=== PATIENT | female | born 2000 | race Caucasian/White ===

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

== ENCOUNTER 2019-01-13 23:54 | Emergency (ER) | payer MEDICAID ==
[~2019-01-13] VITALS: Ht 170.2 cm; Wt 80.0 kg
[2019-01-13 23:56] VITALS: BP 108/60
[2019-01-14] MEDS ORDERED: TRAZ50TA66 PO (00:02)
[2019-01-14] MEDS ORDERED: HYDR25TA11 PO (00:02)
--- NOTE | 2019-01-14 00:36 | NUR ---
ANASTASIA MUSA AT BS FOR US. PT EDUCATED ON ER PROCESS AND POC AND VERBALIZES UNDERSTANDING.
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
== END 2019-01-14 00:55 ==
LOC: ED 01-14 00:37
DX: O26.891 Other specified pregnancy related conditions, first trimester (principal); R10.9 Unspecified abdominal pain; G43.909 Migraine, unspecified, not intractable, without status migrainosus; F31.9 Bipolar disorder, unspecified; F90.9 Attention-deficit hyperactivity disorder, unspecified type; F60.9 Personality disorder, unspecified; Z3A.08 8 weeks gestation of pregnancy; Z72.9 Problem related to lifestyle, unspecified; Z75.9 Unspecified problem related to medical facilities and other health care; Z90.89 Acquired absence of other organs
CPT/HCPCS: 99284

== ENCOUNTER 2019-01-23 18:54 | Emergency (ER) | payer MEDICAID ==
[~2019-01-23] VITALS: Ht 160 cm; Wt 71.4 kg
[~2019-01-23 18:54] MED LIST changes: +HYDR25TA11 PO; +TRAZ50TA66 PO
--- NOTE | 2019-01-23 19:36 | NUR ---
PT TO ROOM FROM LOBBY
--- NOTE | 2019-01-23 19:45 | NUR ---
PT IN US AT THIS TIME
[2019-01-23 19:48] LABS: BASOPHILS # (AUTO) 0.04 x10^3/uL (0-0.3); BASOPHILS % (AUTO) 0 % (0-1); EOSINOPHILS # (AUTO) 0.04 x10^3/uL (0-0.8); EOSINOPHILS % (AUTO) 0 % (1-7); LYMPHOCYTES # (AUTO) 1.89 x10^3/uL (1-6.1); LYMPHOCYTES % (AUTO) 22 % (22-44); MD NO; MEAN CORPUSCULAR HEMOGLOBIN 30.2 pg (27.0-34.8); MEAN CORPUSCULAR HGB CONC 33.9 g/dL (32.4-35.8); MEAN CORPUSCULAR VOLUME 88.9 fL (80-100); MEAN PLATELET VOLUME 8.7 fL (7.4-10.4); MONOCYTES # (AUTO) 0.49 x10^3/uL (0-1.4); MONOCYTES % (AUTO) 6 % (2-9); NEUTROPHILS # (AUTO) 6.12 x10^3/uL (1.8-8.0); NEUTROPHILS % (AUTO) 71 % (42-75); PLATELET COUNT 267 x10^3/uL (130-400); RED BLOOD COUNT 4.08 x10^6/uL (3.82-5.3); RED CELL DISTRIBUTION WIDTH 13.6 % (9.6-15.2)
[2019-01-23 19:57] VITALS: BP 109/45
--- NOTE | 2019-01-23 19:58 | NUR ---
PT PRESENTS TO ED WITH C/O UTERINE CRAMPING X 5 DAYS , DENIES VAGINAL BLEEDING. PT REPORTS SHE IS 9 WEEKS . PT ATTACHED TO BP AND SPO2 MONITORS. GREGORY MUNOZ AT BEDSIDE. CALL LIGHT IN REACH, S/O AT BEDSIDE.
[2019-01-23 20:11] LABS: CULTURE INDICATED? YES; MICROSCOPIC INDICATED
[2019-01-23] MEDS ORDERED: ACETAMINOPHEN 500 MG TABLET PO ONE (20:30)
== END 2019-01-23 21:18 | disposition home or self-care (01) ==
LOC: ED 20:15
DX: O26.891 Other specified pregnancy related conditions, first trimester (principal); R10.30 Lower abdominal pain, unspecified; R30.0 Dysuria; R11.0 Nausea; J45.909 Unspecified asthma, uncomplicated; F31.9 Bipolar disorder, unspecified; F90.9 Attention-deficit hyperactivity disorder, unspecified type; F60.9 Personality disorder, unspecified; Z3A.09 9 weeks gestation of pregnancy; Z87.891 Personal history of nicotine dependence; Z72.9 Problem related to lifestyle, unspecified; Z90.89 Acquired absence of other organs
CPT/HCPCS: 36415; 76801; 81001; 84702; 85025; 87086; 99284

== ENCOUNTER 2019-01-27 20:36 | Emergency (ER) | payer MEDICAID ==
[~2019-01-27] VITALS: Ht 170.2 cm; Wt 71.4 kg
[2019-01-27 21:07] VITALS: BP 101/47
[2019-01-27] MEDS ORDERED: ONDANSETRON ODT 4 MG PO ONE (21:30)
[2019-01-27 21:56] LABS: BASOPHILS # (AUTO) 0.03 x10^3/uL (0-0.3); BASOPHILS % (AUTO) 0 % (0-1); EOSINOPHILS # (AUTO) 0.04 x10^3/uL (0-0.8); EOSINOPHILS % (AUTO) 1 % (1-7); LYMPHOCYTES % (AUTO) 25 % (22-44); MD NO; MEAN CORPUSCULAR HEMOGLOBIN 29.9 pg (27.0-34.8); MEAN CORPUSCULAR HGB CONC 33.2 g/dL (32.4-35.8); MEAN CORPUSCULAR VOLUME 90.2 fL (80-100); MONOCYTES # (AUTO) 0.58 x10^3/uL (0-1.4); MONOCYTES % (AUTO) 7 % (2-9); NEUTROPHILS # (AUTO) 5.51 x10^3/uL (1.8-8.0); NEUTROPHILS % (AUTO) 68 % (42-75); PLATELET COUNT 270 x10^3/uL (130-400); RED BLOOD COUNT 4.13 x10^6/uL (3.82-5.3); RED CELL DISTRIBUTION WIDTH 13.8 % (9.6-15.2)
[2019-01-27 22:02] LABS: ALANINE AMINOTRANSFERASE 24 U/L (12-78); ALBUMIN 3.9 g/dL (3.4-5.0); ANION GAP 6 mmol/L (5-15); CALCIUM 8.7 mg/dL (8.5-10.1); CHLORIDE 109 mmol/L (98-107); CREATININE 0.62 mg/dL (0.55-1.02)
[2019-01-27 22:18] LABS: ALKALINE PHOSPHATASE 50 U/L (45-117); BILIRUBIN,TOTAL 0.2 mg/dL (0.2-1.0)
[2019-01-27 22:50] LABS: MICROSCOPIC NOT IND
[2019-01-27 22:52] LABS: CULTURE INDICATED? NO
--- NOTE | 2019-01-27 23:07 | NUR ---
Patient/Caregiver given discharge instructions and they have confirmed that they understand the instructions. Patient ambulatory with steady gait.
== END 2019-01-27 23:11 | disposition home or self-care (01) ==
LOC: ED 23:08
DX: O26.891 Other specified pregnancy related conditions, first trimester (principal); R10.2 Pelvic and perineal pain; Z3A.10 10 weeks gestation of pregnancy; Z72.9 Problem related to lifestyle, unspecified; Z90.49 Acquired absence of other specified parts of digestive tract; J45.909 Unspecified asthma, uncomplicated; F90.9 Attention-deficit hyperactivity disorder, unspecified type; F31.9 Bipolar disorder, unspecified
CPT/HCPCS: 36415; 76801; 80053; 81003; 84702; 85025; 86901; 99284

== ENCOUNTER 2019-01-31 10:52 | Emergency (ER) | payer MEDICAID ==
[~2019-01-31] VITALS: Ht 170.2 cm; Wt 70.0 kg
[2019-01-31 10:55] VITALS: BP 117/69
--- NOTE | 2019-01-31 11:28 | NUR ---
ua sent to lab. pt in bed resting comfortably. mother is at bedside. awaiting meds from pharmacy.
[2019-01-31] MEDS ORDERED: PYRIDOXINE 25MG TABLET PO ONE (11:30)
[2019-01-31 12:44] LABS: MICROSCOPIC INDICATED
[2019-01-31] MEDS ORDERED: DOXYLAMINE 25MG TABLET PO ONE (21:00)
== END 2019-01-31 13:20 | disposition home or self-care (01) ==
LOC: ED 11:39
DX: O21.0 Mild hyperemesis gravidarum (principal); Z90.89 Acquired absence of other organs; Z3A.10 10 weeks gestation of pregnancy
CPT/HCPCS: 81001; 99283

== ENCOUNTER 2019-02-13 18:54 | Emergency (ER) | payer MEDICAID ==
[~2019-02-13] VITALS: Ht 170.2 cm; Wt 70.5 kg
--- NOTE | 2019-02-13 19:04 | NUR ---
pt ambulates from triage to room with steady gait.
[2019-02-13] MEDS ORDERED: METOCLOPRAMIDE 5 MG/ML, 2ML ONE (19:22)
[2019-02-13] MEDS ORDERED: ACETAMINOPHEN 500 MG TABLET ONE (19:23)
[2019-02-13] MEDS ORDERED: ACETAMINOPHEN 500 MG TABLET PO ONE (19:30)
[2019-02-13] MEDS ORDERED: METOCLOPRAMIDE 5 MG/ML, 2ML IM ONE (19:30)
--- NOTE | 2019-02-13 19:39 | NUR ---
pt medicated per dec. urine sent to lab.
--- NOTE | 2019-02-13 19:57 | NUR ---
pt sleeping in [facility] at this time;
[2019-02-13 20:19] LABS: AMPHETAMINE SCREEN, URINE Negative (Negative); BARBITURATE SCREEN, URINE Negative (Negative); BENZODIAZEPINE SCREEN, URINE Negative (Negative); CANNABINOID SCREEN, URINE Negative (Negative); COCAINE SCREEN, URINE Negative (Negative); METHADONE SCREEN, URINE Negative (Negative); OPIATE SCREEN, URINE Negative (Negative)
--- NOTE | 2019-02-13 20:30 | NUR ---
pt d/c with d/c summary. all questions answered. pt ambulates to registration desk with steady gait for d/c home with friends. pt denies any other needs pertaining to this visit.
[2019-02-13 20:31] VITALS: BP 129/88
== END 2019-02-13 20:34 | disposition home or self-care (01) ==
LOC: ED 19:35
DX: O9A.211 Injury, poisoning and certain other consequences of external causes complicating pregnancy, first trimester (principal); O99.511 Diseases of the respiratory system complicating pregnancy, first trimester; R51 Headache; R11.0 Nausea; Z3A.12 12 weeks gestation of pregnancy; Z91.040 Latex allergy status
CPT/HCPCS: 80307; 96372; 99283; J2765

== ENCOUNTER 2019-02-26 15:08 | Emergency (ER) | payer MEDICAID ==
[~2019-02-26] VITALS: Ht 170.2 cm; Wt 69.4 kg
[2019-02-26 15:42] VITALS: BP 109/70
== END 2019-02-26 16:29 | disposition home or self-care (01) ==
LOC: ED 16:01
DX: J06.9 Acute upper respiratory infection, unspecified (principal); F31.9 Bipolar disorder, unspecified; J45.909 Unspecified asthma, uncomplicated; Z90.89 Acquired absence of other organs
CPT/HCPCS: 71046; 99283

== ENCOUNTER 2019-03-01 21:43 | Emergency (ER) | payer MEDICAID ==
[~2019-03-01] VITALS: Ht 170.2 cm; Wt 79.0 kg
--- NOTE | 2019-03-01 21:57 | NUR ---
+ NAUSEA AND VOMITTED X1 AT HOME BEFORE CAME FOR EMS TO ER STABLE VSS MOTHER AT BEDSIDE
[2019-03-01] MEDS ORDERED: ONDANSETRON ODT 4 MG PO ONE (22:00)
[2019-03-01 22:15] LABS: BASOPHILS # (AUTO) 0.09 x10^3/uL (0-0.3); BASOPHILS % (AUTO) 1 % (0-1); EOSINOPHILS # (AUTO) 0.06 x10^3/uL (0-0.8); EOSINOPHILS % (AUTO) 1 % (1-7); LYMPHOCYTES # (AUTO) 1.58 x10^3/uL (1-6.1); LYMPHOCYTES % (AUTO) 20 % (22-44); MD NO; MEAN CORPUSCULAR HEMOGLOBIN 31.3 pg (27.0-34.8); MEAN CORPUSCULAR HGB CONC 34.4 g/dL (32.4-35.8); MEAN CORPUSCULAR VOLUME 91.1 fL (80-100); MONOCYTES % (AUTO) 6 % (2-9); NEUTROPHILS # (AUTO) 5.83 x10^3/uL (1.8-8.0); NEUTROPHILS % (AUTO) 72 % (42-75); PLATELET COUNT 228 x10^3/uL (130-400); RED BLOOD COUNT 3.69 x10^6/uL (3.82-5.3)
[2019-03-01] MEDS ORDERED: ONDANSETRON ODT 4 MG ONE (22:19)
--- NOTE | 2019-03-01 22:22 | NUR ---
PT MEDICATED WITH ZOFRAN 4 MG PO PER EMAR.
[2019-03-01 22:24] LABS: ALBUMIN 2.9 g/dL (3.4-5.0); ANION GAP 8 mmol/L (5-15); CALCIUM 8.4 mg/dL (8.5-10.1); CHLORIDE 111 mmol/L (98-107); CREATININE 0.54 mg/dL (0.55-1.02)
--- NOTE | 2019-03-01 22:53 | NUR ---
PT SLEEPING. VSS. FAMILY AT BEDSIDE.
[2019-03-01 22:54] VITALS: BP 120/56
== END 2019-03-01 23:13 | disposition home or self-care (01) ==
LOC: ED 22:27
DX: R11.2 Nausea with vomiting, unspecified (principal); R10.9 Unspecified abdominal pain; F31.9 Bipolar disorder, unspecified; F41.1 Generalized anxiety disorder; F90.9 Attention-deficit hyperactivity disorder, unspecified type; Z72.89 Other problems related to lifestyle
CPT/HCPCS: 36415; 80048; 82040; 85025; 99283; Q0162

== ENCOUNTER 2019-03-30 21:08 | Emergency (ER) | payer MEDICAID ==
[~2019-03-30] VITALS: Ht 154.9 cm; Wt 69.0 kg
[~2019-03-30 21:08] MED LIST changes: +LAMO25TA52 PO; +LORA10TA62 PO; +SERT25TA3 PO
--- NOTE | 2019-03-30 21:17 | NUR ---
pt in gown in [facility]. awaiting erp.
--- NOTE | 2019-03-30 22:15 | NUR ---
PT AMBULATES TO RESTROOM WITH STEADY GAIT.
--- NOTE | 2019-03-30 22:16 | NUR ---
INSURANCE VERIFIER: LD IN ROOM
--- NOTE | 2019-03-30 22:23 | NUR ---
PT URINE SENT TO LAB.
--- NOTE | 2019-03-30 22:25 | NUR ---
PER Vitor LUI. T 150'S.
[2019-03-30] MEDS ORDERED: ACETAMINOPHEN 500 MG TABLET ONE (22:28)
[2019-03-30] MEDS ORDERED: ACETAMINOPHEN 500 MG TABLET PO ONE (22:30)
--- NOTE | 2019-03-30 22:31 | NUR ---
PT MEDICATED PER DEC. PT TO US VIA GLORIA.
[2019-03-30 22:36] LABS: BASOPHILS # (AUTO) 0.06 x10^3/uL (0-0.3); BASOPHILS % (AUTO) 1 % (0-1); EOSINOPHILS # (AUTO) 0.06 x10^3/uL (0-0.8); EOSINOPHILS % (AUTO) 1 % (1-7); LYMPHOCYTES % (AUTO) 20 % (22-44); MD NO; MEAN CORPUSCULAR HEMOGLOBIN 31.1 pg (27.0-34.8); MEAN CORPUSCULAR HGB CONC 33.6 g/dL (32.4-35.8); MEAN CORPUSCULAR VOLUME 92.8 fL (80-100); MEAN PLATELET VOLUME 8.1 fL (7.4-10.4); MONOCYTES # (AUTO) 0.65 x10^3/uL (0-1.4); MONOCYTES % (AUTO) 7 % (2-9); NEUTROPHILS # (AUTO) 6.75 x10^3/uL (1.8-8.0); NEUTROPHILS % (AUTO) 72 % (42-75); PLATELET COUNT 264 x10^3/uL (130-400); RED BLOOD COUNT 3.53 x10^6/uL (3.82-5.3); RED CELL DISTRIBUTION WIDTH 14.1 % (9.6-15.2)
[2019-03-30 22:37] LABS: CULTURE INDICATED? YES; MICROSCOPIC INDICATED
[2019-03-30 22:48] LABS: ALANINE AMINOTRANSFERASE 16 U/L (12-78); ALBUMIN 2.8 g/dL (3.4-5.0); ANION GAP 7 mmol/L (5-15); CALCIUM 8.5 mg/dL (8.5-10.1); CHLORIDE 110 mmol/L (98-107)
[2019-03-30 22:50] LABS: ALKALINE PHOSPHATASE 42 U/L (45-117); BILIRUBIN,TOTAL < 0.1 mg/dL (0.2-1.0)
[2019-03-31] MEDS ORDERED: CEFDINIR 300 MG CAPSULE PO ONE
--- NOTE | 2019-03-31 00:45 | NUR ---
PT D/C WITH D/C SUMMARY AND SCRIPTS. ALL QUESTIONS ANSWERED. PT AMBULATES TO REGISTRATION DESK WITH STEADY GAIT FOR D/C HOME. PT TO CALL MTM FOR SAFE D/C HOME. PT DENIES ANY OTHER NEEDS PERTAINING TO THIS VISIT. VSS.
[2019-03-31 00:46] VITALS: BP 110/80
== END 2019-03-31 00:48 | disposition home or self-care (01) ==
LOC: ED 22:19
DX: O20.0 Threatened abortion (principal); O23.12 Infections of bladder in pregnancy, second trimester; Z3A.20 20 weeks gestation of pregnancy; F31.9 Bipolar disorder, unspecified; J45.909 Unspecified asthma, uncomplicated; Z90.89 Acquired absence of other organs; Z87.891 Personal history of nicotine dependence
CPT/HCPCS: 36415; 76815; 80053; 81001; 85025; 87086; 99284

== ENCOUNTER 2019-04-17 10:07 | Observation (INO) | payer MEDICAID ==
[~2019-04-17] VITALS: Ht 170.2 cm; Wt 71.0 kg
[2019-04-17 10:25] VITALS: BP 115/66
[2019-04-17 11:17] LABS: MICROSCOPIC AUTO
[2019-04-17 11:22] LABS: AMPHETAMINE SCREEN, URINE Negative (Negative); BARBITURATE SCREEN, URINE Negative (Negative); BENZODIAZEPINE SCREEN, URINE Negative (Negative); CANNABINOID SCREEN, URINE Negative (Negative); COCAINE SCREEN, URINE Negative (Negative); METHADONE SCREEN, URINE Negative (Negative); OPIATE SCREEN, URINE Negative (Negative)
[2019-04-17 11:28] LABS: BASOPHILS # (AUTO) 0.02 x10^3/uL (0-0.3); BASOPHILS % (AUTO) 0 % (0-1); EOSINOPHILS # (AUTO) 0.03 x10^3/uL (0-0.8); EOSINOPHILS % (AUTO) 0 % (1-7); LYMPHOCYTES # (AUTO) 1.06 x10^3/uL (1-6.1); LYMPHOCYTES % (AUTO) 13 % (22-44); MD NO; MEAN CORPUSCULAR HEMOGLOBIN 30.8 pg (27.0-34.8); MEAN CORPUSCULAR HGB CONC 32.9 g/dL (32.4-35.8); MEAN CORPUSCULAR VOLUME 93.7 fL (80-100); MEAN PLATELET VOLUME 9.1 fL (7.4-10.4); MONOCYTES # (AUTO) 0.43 x10^3/uL (0-1.4); MONOCYTES % (AUTO) 5 % (2-9); NEUTROPHILS # (AUTO) 6.59 x10^3/uL (1.8-8.0); NEUTROPHILS % (AUTO) 81 % (42-75); PLATELET COUNT 242 x10^3/uL (130-400); RED BLOOD COUNT 3.56 x10^6/uL (3.82-5.3); RED CELL DISTRIBUTION WIDTH 13.5 % (9.6-15.2)
[2019-04-17] MEDS ORDERED: PREN1TAB60 PO (12:30)
[2019-04-17] MEDS ORDERED: PYRI25TA2 PO (12:35)
[2019-04-17] MEDS ORDERED: OXYcodone/APAP 5/325MG TABLET ONE (13:03)
[2019-04-17] MEDS ORDERED: OXYcodone/APAP 5/325MG TABLET PO ONE (13:30)
[2019-04-17] MEDS ORDERED: NITR100C56 PO (13:51)
== END 2019-04-17 14:20 | disposition home or self-care (01) ==
LOC: LDOP 10:07 → LDIP 12:00
PROVIDERS: ADMIT Obstetrics & Gynecology; ATTEND Obstetrics & Gynecology
DX: O26.892 Other specified pregnancy related conditions, second trimester (principal); R10.9 Unspecified abdominal pain; O99.342 Other mental disorders complicating pregnancy, second trimester; F32.9 Major depressive disorder, single episode, unspecified; Z3A.21 21 weeks gestation of pregnancy; Z90.89 Acquired absence of other organs
CPT/HCPCS: 36415; 80307; 81001; 85025; 85460; 86592; 86762; 86803; 86850; 86900; 87086; 87340; 87806; G0378; 99211; G0463; G0475

== ENCOUNTER 2019-04-24 14:30 | Outpatient (CLI) | payer MEDICAID ==
[~2019-04-24 14:30] MED LIST changes: +NITR100C56 PO; +PREN1TAB60 PO; +PYRI25TA2 PO
[2019-04-24 14:56] LABS: MICROSCOPIC INDICATED
[2019-04-24 15:08] LABS: AMPHETAMINE SCREEN, URINE Negative (Negative); BARBITURATE SCREEN, URINE Negative (Negative); BENZODIAZEPINE SCREEN, URINE Negative (Negative); CANNABINOID SCREEN, URINE Negative (Negative); COCAINE SCREEN, URINE Negative (Negative); METHADONE SCREEN, URINE Negative (Negative); OPIATE SCREEN, URINE Negative (Negative)
[2019-04-24] MEDS ORDERED: NITR100C56 PO (15:38)
== END 2019-04-24 15:45 | disposition home or self-care (01) ==
LOC: LDOP 14:30
PROVIDERS: ATTEND Obstetrics & Gynecology
DX: O36.8120 Decreased fetal movements, second trimester, not applicable or unspecified (principal); Z3A.21 21 weeks gestation of pregnancy
CPT/HCPCS: 80307; 81001; 87086; 87147; 99211; G0463

== ENCOUNTER 2019-04-27 04:20 | Outpatient (CLI) | payer MEDICAID ==
[~2019-04-27] VITALS: Ht 170.2 cm; Wt 70.9 kg
[2019-04-27 04:25] VITALS: BP 102/61
[2019-04-27 04:54] LABS: MICROSCOPIC NOT IND
[2019-04-27 05:06] LABS: AMPHETAMINE SCREEN, URINE Negative (Negative); BARBITURATE SCREEN, URINE Negative (Negative); BENZODIAZEPINE SCREEN, URINE Negative (Negative); CANNABINOID SCREEN, URINE Negative (Negative); COCAINE SCREEN, URINE Negative (Negative); METHADONE SCREEN, URINE Negative (Negative); OPIATE SCREEN, URINE Negative (Negative)
== END 2019-04-27 05:10 | disposition home or self-care (01) ==
LOC: LDOP 04:20
PROVIDERS: ATTEND Obstetrics & Gynecology
DX: O26.892 Other specified pregnancy related conditions, second trimester (principal); Z3A.23 23 weeks gestation of pregnancy
CPT/HCPCS: 80307; 81003; 87086; 99211; G0463

== ENCOUNTER 2019-04-28 06:48 | Outpatient (CLI) | payer MEDICAID ==
[2019-04-28] MEDS ORDERED: ONDANSETRON 4 MG TABLET ONE (07:41)
[2019-04-28] MEDS ORDERED: ONDANSETRON ODT 4 MG PO PRN (08:00)
[2019-04-28 08:08] LABS: BASOPHILS # (AUTO) 0.02 x10^3/uL (0-0.3); BASOPHILS % (AUTO) 0 % (0-1); EOSINOPHILS # (AUTO) 0.04 x10^3/uL (0-0.8); EOSINOPHILS % (AUTO) 1 % (1-7); LYMPHOCYTES # (AUTO) 0.93 x10^3/uL (1-6.1); LYMPHOCYTES % (AUTO) 14 % (22-44); MD NO; MEAN CORPUSCULAR HGB CONC 33.5 g/dL (32.4-35.8); MEAN CORPUSCULAR VOLUME 95.4 fL (80-100); MEAN PLATELET VOLUME 8.5 fL (7.4-10.4); MONOCYTES # (AUTO) 0.43 x10^3/uL (0-1.4); MONOCYTES % (AUTO) 7 % (2-9); NEUTROPHILS # (AUTO) 5.09 x10^3/uL (1.8-8.0); NEUTROPHILS % (AUTO) 78 % (42-75); PLATELET COUNT 231 x10^3/uL (130-400); RED BLOOD COUNT 3.26 x10^6/uL (3.82-5.3); RED CELL DISTRIBUTION WIDTH 13.5 % (9.6-15.2)
[2019-04-28 10:25] LABS: CULTURE INDICATED? YES; MICROSCOPIC INDICATED
[2019-04-28 10:29] LABS: AMPHETAMINE SCREEN, URINE Negative (Negative); BARBITURATE SCREEN, URINE Negative (Negative); BENZODIAZEPINE SCREEN, URINE Negative (Negative); CANNABINOID SCREEN, URINE Negative (Negative); COCAINE SCREEN, URINE Negative (Negative); METHADONE SCREEN, URINE Negative (Negative); OPIATE SCREEN, URINE Negative (Negative)
== END 2019-04-28 11:10 | disposition home or self-care (01) ==
LOC: LDOP 06:48
PROVIDERS: ATTEND Obstetrics & Gynecology
DX: O26.892 Other specified pregnancy related conditions, second trimester (principal); R10.9 Unspecified abdominal pain; Z91.040 Latex allergy status; Z88.1 Allergy status to other antibiotic agents; Z3A.24 24 weeks gestation of pregnancy
CPT/HCPCS: 36415; 59025; 80307; 81001; 85025; 86592; 86762; 86850; 86900; 87086; 87340; 87806; 99211; Q0162; G0463; G0475

== ENCOUNTER 2019-05-06 09:12 | Outpatient (CLI) | payer MEDICAID ==
[~2019-05-06] VITALS: Ht 170.2 cm; Wt 74.1 kg
[2019-05-06 09:50] VITALS: BP 104/53
[2019-05-06 09:50] LABS: MICROSCOPIC INDICATED
[2019-05-06 09:54] LABS: AMPHETAMINE SCREEN, URINE Negative (Negative); BARBITURATE SCREEN, URINE Negative (Negative); BENZODIAZEPINE SCREEN, URINE Negative (Negative); CANNABINOID SCREEN, URINE Negative (Negative); COCAINE SCREEN, URINE Negative (Negative); METHADONE SCREEN, URINE Negative (Negative); OPIATE SCREEN, URINE Negative (Negative)
[2019-05-06] MEDS ORDERED: b6 PO/NG (10:36)
[2019-05-06] MEDS ORDERED: albut (10:37)
== END 2019-05-06 12:05 | disposition home or self-care (01) ==
LOC: LDOP 09:12
PROVIDERS: ATTEND Obstetrics & Gynecology
DX: O21.2 Late vomiting of pregnancy (principal); Z3A.24 24 weeks gestation of pregnancy; Z88.6 Allergy status to analgesic agent; Z91.040 Latex allergy status; Z88.8 Allergy status to other drugs, medicaments and biological substances
CPT/HCPCS: 59025; 80307; 81001; 87086; 99211; G0463

== ENCOUNTER 2019-05-11 20:30 | Emergency (ER) | payer SELFPAY ==
[~2019-05-11] VITALS: Ht 170.2 cm; Wt 73.7 kg
[~2019-05-11 20:30] MED LIST changes: +albut; +b6 PO/NG
[2019-05-11 20:35] VITALS: BP 104/67
--- NOTE | 2019-05-11 20:52 | NUR ---
PT CHANGED CHIEF COMPLAINT AFTER BEING REGISTERED TO ED AND SEEN IN TRIAGE, TRANSFERED TO L@D.
== END 2019-05-11 21:50 ==
LOC: ED 21:28
DX: R05 Cough (principal); Z53.21 Procedure and treatment not carried out due to patient leaving prior to being seen by health care provider

== ENCOUNTER 2019-05-11 20:53 | Outpatient (CLI) | payer MEDICAID ==
[~2019-05-11] VITALS: Ht 170.2 cm; Wt 74.0 kg
[2019-05-11 21:05] VITALS: BP 107/61
== END 2019-05-11 21:37 | disposition home or self-care (01) ==
LOC: LDOP 20:53
PROVIDERS: ATTEND Obstetrics & Gynecology
DX: O26.892 Other specified pregnancy related conditions, second trimester (principal); R10.9 Unspecified abdominal pain; R05 Cough; Z3A.25 25 weeks gestation of pregnancy
CPT/HCPCS: 81001; 87086

== ENCOUNTER 2019-05-25 17:18 | Outpatient (CLI) | payer SELFPAY ==
[~2019-05-25 17:18] MED LIST changes: +HYDR-826 PO; -HYDR25TA11 PO
[2019-05-25 18:29] LABS: AMPHETAMINE SCREEN, URINE Negative (Negative); BARBITURATE SCREEN, URINE Negative (Negative); BENZODIAZEPINE SCREEN, URINE Negative (Negative); CANNABINOID SCREEN, URINE Negative (Negative); COCAINE SCREEN, URINE Negative (Negative); METHADONE SCREEN, URINE Negative (Negative); OPIATE SCREEN, URINE Negative (Negative)
[2019-05-25 18:32] LABS: MICROSCOPIC INDICATED
== END 2019-05-25 20:15 | disposition home or self-care (01) ==
LOC: LDOP 17:18
PROVIDERS: ATTEND Obstetrics & Gynecology
DX: O26.893 Other specified pregnancy related conditions, third trimester (principal); R42 Dizziness and giddiness; R10.9 Unspecified abdominal pain; Z3A.28 28 weeks gestation of pregnancy
CPT/HCPCS: 59025; 76815; 80307; 81001; 87086; 99211; G0463

== ENCOUNTER 2019-08-31 18:10 | Emergency (ER) | payer SELFPAY ==
[~2019-08-31] VITALS: Ht 170.2 cm; Wt 72.5 kg
[2019-08-31 18:16] VITALS: BP 109/69
== END 2019-08-31 19:33 ==
LOC: ED 19:20
DX: S30.0XXA Contusion of lower back and pelvis, initial encounter (principal); F31.9 Bipolar disorder, unspecified; Z72.9 Problem related to lifestyle, unspecified; Z90.49 Acquired absence of other specified parts of digestive tract; Z87.891 Personal history of nicotine dependence; G43.909 Migraine, unspecified, not intractable, without status migrainosus; W19.XXXA Unspecified fall, initial encounter; Y93.89 Activity, other specified; Y92.89 Other specified places as the place of occurrence of the external cause; Y99.8 Other external cause status
CPT/HCPCS: 72110; 99283

== ENCOUNTER 2019-09-15 09:55 | Emergency (ER) | payer OTHER ==
[~2019-09-15] VITALS: Ht 170.2 cm; Wt 68.0 kg
[2019-09-15 09:59] VITALS: BP 128/69
[2019-09-15 11:01] LABS: BASOPHILS # (AUTO) 0.03 x10^3/uL (0-0.3); BASOPHILS % (AUTO) 1 % (0-1); EOSINOPHILS # (AUTO) 0.13 x10^3/uL (0-0.8); EOSINOPHILS % (AUTO) 2 % (1-7); LYMPHOCYTES # (AUTO) 1.58 x10^3/uL (1-6.1); LYMPHOCYTES % (AUTO) 28 % (22-44); MD NO; MEAN CORPUSCULAR HGB CONC 32.3 g/dL (32.4-35.8); MEAN CORPUSCULAR VOLUME 86.5 fL (80-100); MEAN PLATELET VOLUME 8.4 fL (7.4-10.4); MONOCYTES # (AUTO) 0.48 x10^3/uL (0-1.4); MONOCYTES % (AUTO) 8 % (2-9); NEUTROPHILS # (AUTO) 3.42 x10^3/uL (1.8-8.0); NEUTROPHILS % (AUTO) 61 % (42-75); PLATELET COUNT 342 x10^3/uL (130-400); RED BLOOD COUNT 4.18 x10^6/uL (3.82-5.3); RED CELL DISTRIBUTION WIDTH 16.1 % (9.6-15.2)
[2019-09-15 11:11] LABS: ALANINE AMINOTRANSFERASE 24 U/L (12-78); ALBUMIN 3.9 g/dL (3.4-5.0); ANION GAP 5 mmol/L (5-15); CALCIUM 8.7 mg/dL (8.5-10.1); CHLORIDE 109 mmol/L (98-107); CREATININE 0.73 mg/dL (0.55-1.02)
[2019-09-15 11:15] LABS: ALKALINE PHOSPHATASE 80 U/L (45-117); BILIRUBIN,TOTAL 0.2 mg/dL (0.2-1.0); TOTAL PROTEIN 7.6 g/dL (6.4-8.2); TROPONIN I < 0.015 ng/mL (0.000-0.045)
[2019-09-15] MEDS ORDERED: ONDANSETRON 2MG/ML, 2ML ONE (11:38)
[2019-09-15] MEDS ORDERED: ONDANSETRON 2MG/ML, 2ML IVPush ONE (12:00)
[2019-09-15] MEDS ORDERED: OMNIPAQUE 350 MG/ML, 100ML BOTTLE ONE (12:22)
== END 2019-09-15 12:31 | disposition home or self-care (01) ==
LOC: ED 12:06 → MERGE 12:06 → ED 12:31
DX: R00.2 Palpitations (principal); R55 Syncope and collapse; J45.909 Unspecified asthma, uncomplicated; Z79.899 Other long term (current) drug therapy; Z88.5 Allergy status to narcotic agent
CPT/HCPCS: 36415; 71275; 80053; 84443; 84484; 85025; 93005; 96374; 99284; J2405; Q9967

== ENCOUNTER 2019-10-07 17:37 | Emergency (ER) | payer MEDICAID, OTHER ==
[~2019-10-07] VITALS: Ht 170.2 cm; Wt 75.0 kg
[2019-10-07 17:45] VITALS: BP 110/53
[2019-10-07 20:55] LABS: MICROSCOPIC NOT IND
[2019-10-07 20:58] LABS: CULTURE INDICATED? NO
[2019-10-07 21:12] LABS: BASOPHILS # (AUTO) 0.02 x10^3/uL (0-0.3); BASOPHILS % (AUTO) 0 % (0-1); EOSINOPHILS # (AUTO) 0.07 x10^3/uL (0-0.8); EOSINOPHILS % (AUTO) 1 % (1-7); LYMPHOCYTES # (AUTO) 1.59 x10^3/uL (1-6.1); LYMPHOCYTES % (AUTO) 24 % (22-44); MD NO; MEAN CORPUSCULAR HEMOGLOBIN 28.6 pg (27.0-34.8); MEAN CORPUSCULAR HGB CONC 32.6 g/dL (32.4-35.8); MEAN CORPUSCULAR VOLUME 87.8 fL (80-100); MEAN PLATELET VOLUME 8.4 fL (7.4-10.4); MONOCYTES # (AUTO) 0.75 x10^3/uL (0-1.4); MONOCYTES % (AUTO) 12 % (2-9); NEUTROPHILS # (AUTO) 4.11 x10^3/uL (1.8-8.0); NEUTROPHILS % (AUTO) 63 % (42-75); PLATELET COUNT 324 x10^3/uL (130-400); RED BLOOD COUNT 4.31 x10^6/uL (3.82-5.3); RED CELL DISTRIBUTION WIDTH 15.2 % (9.6-15.2)
[2019-10-07 21:22] LABS: ALANINE AMINOTRANSFERASE 32 U/L (12-78); ALBUMIN 3.7 g/dL (3.4-5.0); ANION GAP 4 mmol/L (5-15); CALCIUM 9.1 mg/dL (8.5-10.1); CHLORIDE 110 mmol/L (98-107)
[2019-10-07 21:27] LABS: ALKALINE PHOSPHATASE 74 U/L (45-117); BILIRUBIN,TOTAL 0.2 mg/dL (0.2-1.0); TOTAL PROTEIN 7.6 g/dL (6.4-8.2)
== END 2019-10-08 02:47 | disposition home or self-care (01) ==
LOC: ED 10-08 00:52
DX: R07.2 Precordial pain (principal); J45.909 Unspecified asthma, uncomplicated; G43.909 Migraine, unspecified, not intractable, without status migrainosus
CPT/HCPCS: 36415; 71046; 80053; 81003; 83690; 84703; 85025; 93005; 99284

== ENCOUNTER 2019-10-24 22:30 | Emergency (ER) | payer MEDICAID, OTHER ==
[~2019-10-24] VITALS: Ht 170.2 cm; Wt 76.0 kg
[2019-10-24 22:38] VITALS: BP 115/69
--- NOTE | 2019-10-24 22:55 | NUR ---
RN to bedside, patient informed of orders placed for urine sample and blood work. Educated patient on the process for clean catch urine sample. Patient verbalized understanding. Ambulated to bathroom without event. Awaiting for urine sample and blood samples.
[2019-10-24 23:05] LABS: BASOPHILS # (AUTO) 0.03 x10^3/uL (0-0.3); BASOPHILS % (AUTO) 0 % (0-1); EOSINOPHILS # (AUTO) 0.06 x10^3/uL (0-0.8); EOSINOPHILS % (AUTO) 1 % (1-7); LYMPHOCYTES # (AUTO) 1.83 x10^3/uL (1-6.1); LYMPHOCYTES % (AUTO) 25 % (22-44); MD NO; MEAN CORPUSCULAR HGB CONC 32.8 g/dL (32.4-35.8); MEAN CORPUSCULAR VOLUME 85.5 fL (80-100); MEAN PLATELET VOLUME 8.3 fL (7.4-10.4); MONOCYTES # (AUTO) 0.57 x10^3/uL (0-1.4); MONOCYTES % (AUTO) 8 % (2-9); NEUTROPHILS # (AUTO) 4.82 x10^3/uL (1.8-8.0); NEUTROPHILS % (AUTO) 66 % (42-75); PLATELET COUNT 391 x10^3/uL (130-400); RED CELL DISTRIBUTION WIDTH 14.2 % (9.6-15.2)
[2019-10-24 23:17] LABS: ALANINE AMINOTRANSFERASE 86 U/L (12-78); ALBUMIN 4.1 g/dL (3.4-5.0); ANION GAP 6 mmol/L (5-15); CALCIUM 9.1 mg/dL (8.5-10.1); CHLORIDE 108 mmol/L (98-107); CREATININE 0.81 mg/dL (0.55-1.02)
[2019-10-24 23:17] LABS: CULTURE INDICATED? YES; MICROSCOPIC INDICATED
[2019-10-24 23:22] LABS: ALKALINE PHOSPHATASE 91 U/L (45-117); BILIRUBIN,TOTAL 0.2 mg/dL (0.2-1.0); TOTAL PROTEIN 8.4 g/dL (6.4-8.2)
== END 2019-10-24 23:45 | disposition home or self-care (01) ==
LOC: ED 22:59
DX: K21.9 Gastro-esophageal reflux disease without esophagitis (principal); R11.2 Nausea with vomiting, unspecified; R19.7 Diarrhea, unspecified; J45.909 Unspecified asthma, uncomplicated; Z90.89 Acquired absence of other organs; Z32.02 Encounter for pregnancy test, result negative
CPT/HCPCS: 36415; 80053; 81001; 83690; 84703; 85025; 87086; 99283

== ENCOUNTER 2019-12-30 12:52 | Emergency (ER) | payer MEDICAID ==
[~2019-12-30] VITALS: Ht 170.2 cm; Wt 67.7 kg
[2019-12-30 13:09] VITALS: BP 113/64
[2019-12-30] MEDS ORDERED: ALUMINUM/MAG/SIMETHICONE 30 ML UDC ONE (13:44)
[2019-12-30] MEDS ORDERED: ALUMINUM/MAG/SIMETHICONE 30 ML UDC PO PRN (14:00)
[2019-12-30 14:11] LABS: BASOPHILS # (AUTO) 0.02 x10^3/uL (0-0.3); BASOPHILS % (AUTO) 1 % (0-1); EOSINOPHILS # (AUTO) 0.04 x10^3/uL (0-0.8); EOSINOPHILS % (AUTO) 1 % (1-7); LYMPHOCYTES # (AUTO) 1.46 x10^3/uL (1-6.1); LYMPHOCYTES % (AUTO) 28 % (22-44); MD NO; MEAN CORPUSCULAR HEMOGLOBIN 28.9 pg (27.0-34.8); MEAN CORPUSCULAR VOLUME 87.7 fL (80-100); MEAN PLATELET VOLUME 9.7 fL (7.4-10.4); MONOCYTES # (AUTO) 0.58 x10^3/uL (0-1.4); MONOCYTES % (AUTO) 11 % (2-9); NEUTROPHILS # (AUTO) 3.13 x10^3/uL (1.8-8.0); NEUTROPHILS % (AUTO) 60 % (42-75); PLATELET COUNT 252 x10^3/uL (130-400); RED BLOOD COUNT 4.48 x10^6/uL (3.82-5.3); RED CELL DISTRIBUTION WIDTH 15.9 % (9.6-15.2)
--- NOTE | 2019-12-30 14:15 | NUR ---
PT TO US AND RETURNED UNABLE TO URINATE AT THIS TIME WILL CONTINUE TO ATTEMPT UA
[2019-12-30 14:21] LABS: ALANINE AMINOTRANSFERASE 27 U/L (12-78); ALBUMIN 4.3 g/dL (3.4-5.0); ANION GAP 6 mmol/L (5-15); CALCIUM 9.5 mg/dL (8.5-10.1); CHLORIDE 108 mmol/L (98-107); CREATININE 0.75 mg/dL (0.55-1.02)
[2019-12-30 14:25] LABS: ALKALINE PHOSPHATASE 64 U/L (45-117); BILIRUBIN,TOTAL 0.3 mg/dL (0.2-1.0); TOTAL PROTEIN 7.8 g/dL (6.4-8.2)
--- NOTE | 2019-12-30 14:46 | NUR ---
ABLE TO PROVIED UA AT THIS TIME
[2019-12-30 15:22] LABS: CULTURE INDICATED? YES; MICROSCOPIC INDICATED
== END 2019-12-30 16:14 | disposition home or self-care (01) ==
LOC: ED 16:05
DX: O03.9 Complete or unspecified spontaneous abortion without complication (principal); K29.00 Acute gastritis without bleeding; R10.32 Left lower quadrant pain; R10.31 Right lower quadrant pain; F17.200 Nicotine dependence, unspecified, uncomplicated; J45.909 Unspecified asthma, uncomplicated; Z90.89 Acquired absence of other organs
CPT/HCPCS: 36415; 76801; 80053; 81001; 84702; 85025; 87086; 99284

== ENCOUNTER 2020-01-23 22:04 | Emergency (ER) | payer MEDICAID ==
[~2020-01-23] VITALS: Ht 162.6 cm; Wt 74.1 kg
--- NOTE | 2020-01-23 22:50 | NUR ---
Pt presents to room reporting palpitations today with sternal chest pressure. Pt reports Hx of similar since she gave 5 months ago. Pt states she was on Metoprolol but it has and she has not been able to refill it.
[2020-01-23 23:29] LABS: BASOPHILS # (AUTO) 0.02 x10^3/uL (0-0.3); BASOPHILS % (AUTO) 0 % (0-1); EOSINOPHILS # (AUTO) 0.08 x10^3/uL (0-0.8); EOSINOPHILS % (AUTO) 1 % (1-7); LYMPHOCYTES % (AUTO) 23 % (22-44); MD NO; MEAN CORPUSCULAR HGB CONC 33.5 g/dL (32.4-35.8); MEAN CORPUSCULAR VOLUME 86.5 fL (80-100); MEAN PLATELET VOLUME 8.5 fL (7.4-10.4); MONOCYTES # (AUTO) 0.68 x10^3/uL (0-1.4); MONOCYTES % (AUTO) 9 % (2-9); NEUTROPHILS # (AUTO) 4.77 x10^3/uL (1.8-8.0); NEUTROPHILS % (AUTO) 66 % (42-75); PLATELET COUNT 322 x10^3/uL (130-400); RED CELL DISTRIBUTION WIDTH 15.6 % (9.6-15.2)
[2020-01-23] MEDS ORDERED: SODIUM CHLORIDE 0.9% 1,000ML IVBOLUS ONE (23:30)
[2020-01-23] MEDS ORDERED: SODIUM CHLORIDE FLUSH 10ML SYR IVF ONE (23:30)
[2020-01-23 23:39] LABS: ALBUMIN 3.7 g/dL (3.4-5.0); ANION GAP 6 mmol/L (5-15); CALCIUM 9.3 mg/dL (8.5-10.1); CHLORIDE 108 mmol/L (98-107)
[2020-01-24] MEDS ORDERED: LORazepam 2 MG/ML, 1ML IVPush STA (00:33)
[2020-01-24] MEDS ORDERED: LORazepam 2 MG/ML, 1ML ONE (00:39)
--- NOTE | 2020-01-24 01:21 | NUR ---
Pt reports improved symptoms after Ativan and states she feels "calm" now.
[2020-01-24] MEDS ORDERED: METOPROLOL TARTRATE 25 MG TAB ONE (01:41)
[2020-01-24] MEDS ORDERED: METOPROLOL TARTRATE 25 MG TAB PO ONE (02:00)
[2020-01-24 02:29] VITALS: BP 116/68
== END 2020-01-24 02:34 | disposition home or self-care (01) ==
LOC: ED 23:00
DX: R00.2 Palpitations (principal); R00.0 Tachycardia, unspecified; R42 Dizziness and giddiness; I10 Essential (primary) hypertension; E11.9 Type 2 diabetes mellitus without complications; J45.909 Unspecified asthma, uncomplicated; F17.200 Nicotine dependence, unspecified, uncomplicated; Z90.89 Acquired absence of other organs
CPT/HCPCS: 36415; 80048; 82040; 85025; 93005; 96374; 99285; J2060; J7030

== ENCOUNTER 2020-01-28 18:52 | Emergency (ER) | payer MEDICAID ==
[~2020-01-28] VITALS: Ht 170.2 cm; Wt 75.3 kg
--- NOTE | 2020-01-28 19:28 | NUR ---
Pt soaking infected finger in warm water.
[2020-01-28] MEDS ORDERED: NEOSPORIN OINT. PKT 1 PACKET ONE (19:43)
[2020-01-28 19:48] VITALS: BP 107/64
== END 2020-01-28 19:50 | disposition home or self-care (01) ==
LOC: ED 19:09
DX: L03.012 Cellulitis of left finger (principal); I10 Essential (primary) hypertension; G43.909 Migraine, unspecified, not intractable, without status migrainosus
CPT/HCPCS: 11740; 99284

== ENCOUNTER 2020-03-16 21:57 | Emergency (ER) | payer MEDICAID ==
[~2020-03-16] VITALS: Ht 170.2 cm; Wt 77.4 kg
[2020-03-16 23:25] LABS: MICROSCOPIC AUTO
[2020-03-16 23:26] LABS: WET PREP WBCS MODERATE (FEW)
[2020-03-16 23:34] LABS: BASOPHILS # (AUTO) 0.03 x10^3/uL (0-0.3); BASOPHILS % (AUTO) 0 % (0-1); EOSINOPHILS # (AUTO) 0.07 x10^3/uL (0-0.8); EOSINOPHILS % (AUTO) 1 % (1-7); LYMPHOCYTES # (AUTO) 2.06 x10^3/uL (1-6.1); LYMPHOCYTES % (AUTO) 31 % (22-44); MD NO; MEAN CORPUSCULAR HEMOGLOBIN 29.9 pg (27.0-34.8); MEAN CORPUSCULAR HGB CONC 33.8 g/dL (32.4-35.8); MEAN PLATELET VOLUME 9.2 fL (7.4-10.4); MONOCYTES # (AUTO) 0.63 x10^3/uL (0-1.4); MONOCYTES % (AUTO) 10 % (2-9); NEUTROPHILS # (AUTO) 3.78 x10^3/uL (1.8-8.0); NEUTROPHILS % (AUTO) 58 % (42-75); PLATELET COUNT 264 x10^3/uL (130-400); RED BLOOD COUNT 4.25 x10^6/uL (3.82-5.3); RED CELL DISTRIBUTION WIDTH 14.9 % (9.6-15.2)
[2020-03-16 23:38] LABS: ALANINE AMINOTRANSFERASE 77 U/L (12-78); ANION GAP 8 mmol/L (5-15); CHLORIDE 108 mmol/L (98-107); CREATININE 0.78 mg/dL (0.55-1.02)
[2020-03-16 23:39] LABS: CLUE CELLS PRESENT (NONE SEEN)
[2020-03-16 23:42] LABS: ALKALINE PHOSPHATASE 76 U/L (45-117); BILIRUBIN,TOTAL 0.2 mg/dL (0.2-1.0); TOTAL PROTEIN 7.6 g/dL (6.4-8.2)
[2020-03-16] MEDS ORDERED: metroNIDAZOLE 500 MG TABLET ONE (23:52)
[2020-03-16 23:55] VITALS: BP 102/63
[2020-03-17] MEDS ORDERED: metroNIDAZOLE 500 MG TABLET PO ONE
== END 2020-03-17 00:48 | disposition home or self-care (01) ==
LOC: ED 22:34
DX: N76.0 Acute vaginitis (principal); Z72.9 Problem related to lifestyle, unspecified; G43.909 Migraine, unspecified, not intractable, without status migrainosus
CPT/HCPCS: 36415; 80053; 81001; 84703; 85025; 87086; 87147; 87210; 87491; 87591; 87808; 99283

== ENCOUNTER 2020-03-26 22:50 | Emergency (ER) | payer MEDICAID ==
[~2020-03-26] VITALS: Ht 170.2 cm; Wt 72.0 kg
--- NOTE | 2020-03-26 23:03 | NUR ---
assessment made. chart up for MD to see.
--- NOTE | 2020-03-26 23:07 | NUR ---
PA at bedside.
--- NOTE | 2020-03-26 23:26 | NUR ---
bladder scan > 200 cc. MD aware
[2020-03-26] MEDS ORDERED: CEFTRIAXONE 250 MG IM ONE (23:30)
[2020-03-26] MEDS ORDERED: AZITHROMYCIN 500 MG TABLET PO ONE (23:30)
--- NOTE | 2020-03-26 23:46 | NUR ---
2nd bladder scan 987 cc female RN at bedside for steward placement.
[2020-03-26] MEDS ORDERED: CEFTRIAXONE 250 MG ONE (23:48)
[2020-03-26] MEDS ORDERED: AZITHROMYCIN 250 MG TABLET ONE (23:48)
--- NOTE | 2020-03-26 23:51 | NUR ---
task RN: 16 fr steward placed successfully. pt tolerated procedure well. steward draining clear/yellow urine.
--- NOTE | 2020-03-26 23:56 | NUR ---
ISABELL RN: PT REFUSING MEDICATIONS AT THIS TIME STATING "I WAS JUST TREATED FOR STDs ON FRIDAY, I DON'T WANT THOSE MEDS AGAIN". PRIMARY RN MADE AWARE
[2020-03-27 00:19] LABS: MICROSCOPIC NOT IND
[2020-03-27] MEDS ORDERED: DOXYCYCLINE 100MG TABLET ONE (00:34)
[2020-03-27] MEDS ORDERED: DOXYCYCLINE 100MG TABLET PO ONE (01:00)
--- NOTE | 2020-03-27 01:00 | NUR ---
PT EDUCATED ON MALAVE AND REASON FOR INSERTION. PT EDUCATED ON LEG BAG AND ITS USE. PT EDUCATED ON IMPORTANCE OF FOLLOW UP WITH UROLOGY
[2020-03-27 01:26] VITALS: BP 105/56
== END 2020-03-27 01:29 | disposition home or self-care (01) ==
LOC: ED 23:19
DX: R33.8 Other retention of urine (principal); A56.8 Sexually transmitted chlamydial infection of other sites; J45.909 Unspecified asthma, uncomplicated; I10 Essential (primary) hypertension; G43.909 Migraine, unspecified, not intractable, without status migrainosus; Z90.89 Acquired absence of other organs
CPT/HCPCS: 51702; 81003; 81025; 87491; 87591; 99284

== ENCOUNTER 2020-03-27 15:22 | Emergency (ER) | payer MEDICAID ==
[~2020-03-27] VITALS: Ht 170.2 cm; Wt 76.6 kg
[2020-03-27 15:26] VITALS: BP 102/72
--- NOTE | 2020-03-27 16:32 | NUR ---
SUPERVISOR CD AREA: REMOVED MALAVE. PT TOLERATED WITH NO COMPLICATIONS. PT STATES "I'M GOING TO GO AND TRY TO PEE." PT HAS STEADY GAIT TO BATHROOM. UPDATED PRIMARY RNNOEMI.
--- NOTE | 2020-03-27 16:40 | NUR ---
PT VOIDED IN BR. PT DENIES BURNING/PAIN.
== END 2020-03-27 16:50 | disposition home or self-care (01) ==
LOC: ED 16:35
DX: R10.2 Pelvic and perineal pain (principal); E11.9 Type 2 diabetes mellitus without complications; Z87.891 Personal history of nicotine dependence
CPT/HCPCS: 99281

== ENCOUNTER 2020-04-10 11:42 | Emergency (ER) | payer MEDICAID ==
[~2020-04-10] VITALS: Ht 170.2 cm; Wt 70.0 kg
[2020-04-10 11:47] VITALS: BP 114/63
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
--- NOTE | 2020-04-10 12:03 | NUR ---
BREAK RN: PT UPRIGHT ON GURNEY AWAKE & CALM, TEXTING ON CELL PHONE, RESPONDS TO STAFF QUESTIONS, NADN, COMFORT MEASURES PROVIDED, CALL LIGHT WITHIN REACH.
[2020-04-10 13:19] LABS: ALBUMIN 4.1 g/dL (3.4-5.0); ANION GAP 5 mmol/L (5-15); CALCIUM 9.3 mg/dL (8.5-10.1); CHLORIDE 109 mmol/L (98-107); CREATININE 0.79 mg/dL (0.55-1.02)
--- NOTE | 2020-04-10 13:25 | NUR ---
pt resting in [facility]. pt's aox4. resps even and unlabored.
[2020-04-10 14:15] LABS: BASOPHILS # (AUTO) 0.04 x10^3/uL (0-0.3); BASOPHILS % (AUTO) 1 % (0-1); EOSINOPHILS # (AUTO) 0.04 x10^3/uL (0-0.8); EOSINOPHILS % (AUTO) 1 % (1-7); LYMPHOCYTES # (AUTO) 1.38 x10^3/uL (1-6.1); LYMPHOCYTES % (AUTO) 22 % (22-44); MD NO; MEAN CORPUSCULAR HGB CONC 33.4 g/dL (32.4-35.8); MEAN CORPUSCULAR VOLUME 89.8 fL (80-100); MEAN PLATELET VOLUME 8.9 fL (7.4-10.4); MONOCYTES # (AUTO) 0.58 x10^3/uL (0-1.4); MONOCYTES % (AUTO) 9 % (2-9); NEUTROPHILS # (AUTO) 4.32 x10^3/uL (1.8-8.0); NEUTROPHILS % (AUTO) 68 % (42-75); PLATELET COUNT 253 x10^3/uL (130-400); RED BLOOD COUNT 4.31 x10^6/uL (3.82-5.3); RED CELL DISTRIBUTION WIDTH 13.6 % (9.6-15.2)
--- NOTE | 2020-04-10 14:57 | NUR ---
Patient given discharge instructions and they have confirmed that they understand the instructions. Patient ambulatory with steady gait.
== END 2020-04-10 14:58 | disposition home or self-care (01) ==
LOC: ED 12:26
DX: R55 Syncope and collapse (principal); I49.8 Other specified cardiac arrhythmias; I10 Essential (primary) hypertension; E11.9 Type 2 diabetes mellitus without complications; J45.909 Unspecified asthma, uncomplicated; Z90.49 Acquired absence of other specified parts of digestive tract
CPT/HCPCS: 36415; 80048; 82040; 84703; 85025; 93005; 99284

== ENCOUNTER 2020-05-04 20:29 | Emergency (ER) | payer MEDICAID ==
[~2020-05-04] VITALS: Ht 170.2 cm; Wt 78.0 kg
[2020-05-04 20:35] VITALS: BP 104/65
== END 2020-05-04 22:05 | disposition home or self-care (01) ==
LOC: ED 21:30
DX: S93.491A Sprain of other ligament of right ankle, initial encounter (principal); X50.0XXA Overexertion from strenuous movement or load, initial encounter; Y93.89 Activity, other specified; Y92.410 Unspecified street and highway as the place of occurrence of the external cause; Y99.8 Other external cause status
CPT/HCPCS: 99283

== ENCOUNTER 2020-05-14 00:32 | Emergency (ER) | payer MEDICAID ==
[~2020-05-14] VITALS: Ht 170.2 cm; Wt 80.2 kg
[2020-05-14 00:33] VITALS: BP 105/63
== END 2020-05-14 01:04 | disposition home or self-care (01) ==
LOC: ED 00:45
DX: K04.7 Periapical abscess without sinus (principal); K08.89 Other specified disorders of teeth and supporting structures
CPT/HCPCS: 99283

== ENCOUNTER 2020-06-01 17:03 | Emergency (ER) | payer MEDICAID ==
[~2020-06-01] VITALS: Ht 167.6 cm; Wt 82.1 kg
[2020-06-01 17:21] VITALS: BP 116/62
--- NOTE | 2020-06-01 19:56 | NUR ---
Patient given discharge instructions and they have confirmed that they understand the instructions. Patient ambulatory with steady gait.
== END 2020-06-01 19:57 | disposition home or self-care (01) ==
LOC: ED 19:42
DX: S63.521A Sprain of radiocarpal joint of right wrist, initial encounter (principal); X58.XXXA Exposure to other specified factors, initial encounter; Y93.89 Activity, other specified; Y92.89 Other specified places as the place of occurrence of the external cause; Y99.0 Civilian activity done for income or pay
CPT/HCPCS: 29105; 29125; 99283

== ENCOUNTER 2020-06-14 21:30 | Emergency (ER) | payer MEDICAID ==
[~2020-06-14] VITALS: Ht 170.2 cm; Wt 81.0 kg
[2020-06-14 21:43] VITALS: BP 107/57
--- NOTE | 2020-06-14 22:04 | NUR ---
PT. TO ED WITH REQUEST FOR FULL RELEASE WORK NOTE TO RETURN TO WORK ON FRIDAY THIS WEEK. PT. REPORTS SHE WAS SEEN AT [facility] AND THEY DID NOT GIVE HER A WORK NOTE. SHE STATES "I PASSED OUT AT WORK BECAUSE IT WAS TOO HOT AND THEY SENT ME TO [facility], THEY DID LABS, TEST, AND AN EKG AND SAID EVERYTHING WAS NORMAL BUT WOULDN'T GIVE ME A WORK NOTE. I FEEL FINE AND I AM READY TO GO BACK." PT. DENIES ANY INJURY. AMBULATORY WITH STEADY GAIT. NO DISTRESS NOTED. EKG DONE IN TRIAGE. DR. HORN HAS BEEN IN FOR EVAL. PLAN TO D/C PT.
[2020-06-14] MEDS ORDERED: METO25TA35 PO (22:06)
== END 2020-06-14 23:16 | disposition home or self-care (01) ==
LOC: ED 21:45
DX: R55 Syncope and collapse (principal); R42 Dizziness and giddiness; R94.31 Abnormal electrocardiogram [ECG] [EKG]; J45.909 Unspecified asthma, uncomplicated; Z90.89 Acquired absence of other organs
CPT/HCPCS: 93005; 99283

== ENCOUNTER 2020-07-10 12:19 | Emergency (ER) | payer MEDICAID ==
[~2020-07-10] VITALS: Ht 170.2 cm; Wt 81.1 kg
[~2020-07-10 12:19] MED LIST changes: +METO25TA35 PO
[2020-07-10 12:40] VITALS: BP 106/70
== END 2020-07-10 13:48 | disposition home or self-care (01) ==
LOC: ED 13:23
DX: J45.30 Mild persistent asthma, uncomplicated (principal); F17.200 Nicotine dependence, unspecified, uncomplicated; I10 Essential (primary) hypertension; E11.9 Type 2 diabetes mellitus without complications
CPT/HCPCS: 99283

== ENCOUNTER 2020-08-01 19:46 | Emergency (ER) | payer MEDICAID ==
[~2020-08-01] VITALS: Ht 170.2 cm; Wt 83.2 kg
[2020-08-01 21:22] LABS: ALBUMIN 4.1 g/dL (3.4-5.0); ANION GAP 5 mmol/L (5-15); BASOPHILS % (AUTO) 1 % (0-1); CALCIUM 9.1 mg/dL (8.5-10.1); CHLORIDE 106 mmol/L (98-107); CREATININE 0.77 mg/dL (0.55-1.02); EOSINOPHILS % (AUTO) 1 % (1-7); LYMPHOCYTES % (AUTO) 27 % (22-44); MEAN CORPUSCULAR HEMOGLOBIN 29.6 pg (27.0-34.8); MEAN CORPUSCULAR HGB CONC 33.2 g/dL (32.4-35.8); MEAN PLATELET VOLUME 9.1 fL (7.4-10.4); MONOCYTES % (AUTO) 9 % (2-9); NEUTROPHILS % (AUTO) 63 % (42-75); PLATELET COUNT 292 x10^3/uL (130-400); RED BLOOD COUNT 4.62 x10^6/uL (3.82-5.3); RED CELL DISTRIBUTION WIDTH 13.8 % (9.6-15.2)
[2020-08-01 21:36] LABS: MD NO
[2020-08-01 22:20] VITALS: BP 137/100
== END 2020-08-01 22:23 | disposition home or self-care (01) ==
LOC: ED 21:15
DX: R00.2 Palpitations (principal); R42 Dizziness and giddiness; I10 Essential (primary) hypertension; E11.9 Type 2 diabetes mellitus without complications; J45.909 Unspecified asthma, uncomplicated; Z90.49 Acquired absence of other specified parts of digestive tract
CPT/HCPCS: 36415; 71045; 80048; 82040; 84443; 84703; 85025; 93005; 99285

== ENCOUNTER 2020-08-10 20:54 | Emergency (ER) | payer MEDICAID ==
[~2020-08-10] VITALS: Ht 170.2 cm; Wt 83.3 kg
[2020-08-10] MEDS ORDERED: ACETAMINOPHEN 500 MG TABLET PO ONE (21:30)
[2020-08-10] MEDS ORDERED: ONDANSETRON ODT 4 MG PO ONE (21:30)
--- NOTE | 2020-08-10 21:38 | NUR ---
19 YO F CC OF ABD PAIN IN MIDDLE UPP ABD 7/10 PAIN DESCRIBES A DULL PAIN, FEELS BETTER WHEN AT REST. PT ON PHONE DURING ASSESSMENT, DID NOT LOOK UP. MOTHER AT BEDSIDE. STRONG SMELL OF CIGARETTE SMOKE.
[2020-08-10 21:42] LABS: ALANINE AMINOTRANSFERASE 45 U/L (12-78); ALBUMIN 4.2 g/dL (3.4-5.0); ANION GAP 8 mmol/L (5-15); CALCIUM 9.2 mg/dL (8.5-10.1); CHLORIDE 108 mmol/L (98-107); CREATININE 0.91 mg/dL (0.55-1.02)
[2020-08-10] MEDS ORDERED: ACETAMINOPHEN 500 MG TABLET ONE (21:45)
[2020-08-10] MEDS ORDERED: ONDANSETRON ODT 4 MG ONE (21:45)
[2020-08-10 21:46] LABS: ALKALINE PHOSPHATASE 84 U/L (45-117); BILIRUBIN,TOTAL 0.3 mg/dL (0.2-1.0); TOTAL PROTEIN 7.9 g/dL (6.4-8.2)
[2020-08-10 22:05] LABS: BASOPHILS % (AUTO) 1 % (0-1); EOSINOPHILS % (AUTO) 1 % (1-7); LYMPHOCYTES % (AUTO) 33 % (22-44); MEAN CORPUSCULAR HGB CONC 33.6 g/dL (32.4-35.8); MEAN PLATELET VOLUME 9.3 fL (7.4-10.4); MONOCYTES % (AUTO) 8 % (2-9); NEUTROPHILS % (AUTO) 58 % (42-75); PLATELET COUNT 275 x10^3/uL (130-400); RED CELL DISTRIBUTION WIDTH 13.5 % (9.6-15.2)
[2020-08-10 22:12] LABS: MD NO
[2020-08-10 22:17] VITALS: BP 117/75
--- NOTE | 2020-08-10 22:18 | NUR ---
PT RESTING IN [facility], NO NEW NEEDS
== END 2020-08-10 22:41 | disposition home or self-care (01) ==
LOC: ED 21:11
DX: R10.84 Generalized abdominal pain (principal); R11.0 Nausea; R10.13 Epigastric pain; I10 Essential (primary) hypertension; E11.9 Type 2 diabetes mellitus without complications; J45.909 Unspecified asthma, uncomplicated; Z90.89 Acquired absence of other organs
CPT/HCPCS: 36415; 80053; 83690; 84703; 85025; 99283; Q0162

== ENCOUNTER 2020-08-13 07:24 | Emergency (ER) | payer MEDICAID ==
[~2020-08-13] VITALS: Ht 170.2 cm; Wt 81.6 kg
--- NOTE | 2020-08-13 08:44 | NUR ---
INVESTMENT BANKER: PT AMBULATORY TO ROOM FROM LOBBY
--- NOTE | 2020-08-13 09:03 | NUR ---
first contact with pt. pt c/o r and l upper quadrants abd pain with nausea. denies urinary symptoms/v/d. lmp about 2 month ago per pt. pt's aox4. resps even and unlabored. bp/spo2 monitors in place. call light within reach. pa at bedside evaluating at this time.
[2020-08-13 09:41] LABS: BASOPHILS % (AUTO) 1 % (0-1); EOSINOPHILS % (AUTO) 1 % (1-7); LYMPHOCYTES % (AUTO) 24 % (22-44); MEAN CORPUSCULAR HEMOGLOBIN 30.3 pg (27.0-34.8); MEAN CORPUSCULAR HGB CONC 33.6 g/dL (32.4-35.8); MEAN PLATELET VOLUME 8.6 fL (7.4-10.4); MONOCYTES % (AUTO) 9 % (2-9); NEUTROPHILS % (AUTO) 66 % (42-75); PLATELET COUNT 252 x10^3/uL (130-400); RED CELL DISTRIBUTION WIDTH 13.5 % (9.6-15.2)
[2020-08-13 09:43] LABS: MD NO
[2020-08-13 09:49] LABS: ALANINE AMINOTRANSFERASE 59 U/L (12-78); ALBUMIN 4.2 g/dL (3.4-5.0); ANION GAP 6 mmol/L (5-15); CALCIUM 9.1 mg/dL (8.5-10.1); CHLORIDE 109 mmol/L (98-107); CREATININE 0.84 mg/dL (0.55-1.02)
--- NOTE | 2020-08-13 09:49 | NUR ---
pt provided urine sample. urine collected and ua sent.
[2020-08-13 09:54] LABS: ALKALINE PHOSPHATASE 91 U/L (45-117); BILIRUBIN,TOTAL 0.6 mg/dL (0.2-1.0)
[2020-08-13 10:03] LABS: MICROSCOPIC INDICATED
--- NOTE | 2020-08-13 10:08 | NUR ---
pt to us at this time.
--- NOTE | 2020-08-13 11:17 | NUR ---
report given to massiel saavedra.
[2020-08-13 12:10] VITALS: BP 103/63
== END 2020-08-13 12:19 | disposition home or self-care (01) ==
LOC: ED 09:12
DX: R11.0 Nausea (principal); R10.10 Upper abdominal pain, unspecified; I10 Essential (primary) hypertension; E11.9 Type 2 diabetes mellitus without complications; J45.909 Unspecified asthma, uncomplicated; Z90.49 Acquired absence of other specified parts of digestive tract; F17.200 Nicotine dependence, unspecified, uncomplicated
CPT/HCPCS: 36415; 76801; 80053; 81001; 83690; 84702; 85025; 87086; 99284

== ENCOUNTER 2020-08-21 20:11 | Emergency (ER) | payer MEDICAID ==
[~2020-08-21] VITALS: Ht 162.6 cm; Wt 68.0 kg
--- NOTE | 2020-08-21 20:31 | NUR ---
PT BIB EMS FOR C/O PALPITATIONS. PT WITH HISTORY OF SVT PER PT AND EMS. PT ARRIVES TO [facility] ED AND CHANGED INTO GOWN. PT ATTACHED TO CARDIAC AND VS MONITORS. VSS AT THIS TIME. PT EDUCATED ON ER PROCESS AND POC AND VERBALIZES UNDERSTANDING. CALL LIGHT IS WITHIN REACH. DR GOODMAN AT BS AT THIS TIME.
--- NOTE | 2020-08-21 20:34 | NUR ---
PER DR GOODMAN, PT HAD RECENT NEGATIVE TEST AT [facility] ED.
--- NOTE | 2020-08-21 20:56 | NUR ---
PT D/C WITH D/C SUMMARY AND SCRIPTS. ALL QUESTIONS ANSWERED. PT DENIES ANY OTHER NEEDS PERTAINING TO THIS VISIT. PT AMBULATES TO REGISTRATION DESK WITH STEADY GAIT FOR D/C HOME. PT VSS AND UPDATED IN EMR PRIOR TO D/C.
[2020-08-21 21:04] VITALS: BP 103/60
== END 2020-08-21 21:06 | disposition home or self-care (01) ==
LOC: ED 20:46
DX: R00.2 Palpitations (principal); I49.8 Other specified cardiac arrhythmias; R00.0 Tachycardia, unspecified; I10 Essential (primary) hypertension; E11.9 Type 2 diabetes mellitus without complications; J45.909 Unspecified asthma, uncomplicated; F17.200 Nicotine dependence, unspecified, uncomplicated
CPT/HCPCS: 93005; 99283

== ENCOUNTER 2020-08-25 10:00 | Emergency (ER) | payer MEDICAID ==
[~2020-08-25] VITALS: Ht 170.2 cm; Wt 81.2 kg
--- NOTE | 2020-08-25 10:15 | NUR ---
Assumed care of patient. C/O nausea. NAD. Placed on NIBP, pulse ox, and library monitor. Will continue to monitor.
[2020-08-25] MEDS ORDERED: ONDANSETRON 2MG/ML, 2ML ONE (10:28)
[2020-08-25] MEDS ORDERED: ONDANSETRON ODT 8 MG PO ONE (10:30)
[2020-08-25] MEDS ORDERED: ONDANSETRON 2MG/ML, 2ML IVPush ONE (10:30)
[2020-08-25 10:56] LABS: BASOPHILS % (AUTO) 0 % (0-1); EOSINOPHILS % (AUTO) 0 % (1-7); LYMPHOCYTES % (AUTO) 12 % (22-44); MEAN CORPUSCULAR HEMOGLOBIN 29.7 pg (27.0-34.8); MEAN CORPUSCULAR HGB CONC 33.3 g/dL (32.4-35.8); MEAN PLATELET VOLUME 8.6 fL (7.4-10.4); MONOCYTES % (AUTO) 16 % (2-9); NEUTROPHILS % (AUTO) 73 % (42-75); PLATELET COUNT 233 x10^3/uL (130-400); RED BLOOD COUNT 4.55 x10^6/uL (3.82-5.3); RED CELL DISTRIBUTION WIDTH 13.3 % (9.6-15.2)
--- NOTE | 2020-08-25 10:57 | NUR ---
Ambulated to the restroom with a steady gait. UA sent.
[2020-08-25 11:01] LABS: ALANINE AMINOTRANSFERASE 70 U/L (12-78); ALBUMIN 4.1 g/dL (3.4-5.0); ANION GAP 6 mmol/L (5-15); CALCIUM 8.9 mg/dL (8.5-10.1); CHLORIDE 110 mmol/L (98-107); CREATININE 0.83 mg/dL (0.55-1.02)
--- NOTE | 2020-08-25 11:02 | NUR ---
Provided patient with water for PO challenge.
[2020-08-25 11:05] LABS: ALKALINE PHOSPHATASE 83 U/L (45-117); BILIRUBIN,TOTAL 0.4 mg/dL (0.2-1.0); TOTAL PROTEIN 7.5 g/dL (6.4-8.2)
[2020-08-25 11:15] LABS: MD SCAN
--- NOTE | 2020-08-25 11:24 | NUR ---
Encouraged patient to trial PO challenge.
[2020-08-25 11:42] LABS: MICROSCOPIC INDICATED
[2020-08-25 12:11] VITALS: BP 112/78
--- NOTE | 2020-08-25 12:11 | NUR ---
Patient/Caregiver given discharge instructions and they have confirmed that they understand the instructions. Patient ambulatory with steady gait.
== END 2020-08-25 12:13 | disposition home or self-care (01) ==
LOC: ED 10:05
DX: R55 Syncope and collapse (principal); R11.0 Nausea; I10 Essential (primary) hypertension; G43.909 Migraine, unspecified, not intractable, without status migrainosus; F17.200 Nicotine dependence, unspecified, uncomplicated; Z90.49 Acquired absence of other specified parts of digestive tract
CPT/HCPCS: 36415; 80053; 81001; 84703; 85025; 87086; 93005; 96374; 99284; J2405

== ENCOUNTER 2020-09-04 23:34 | Emergency (ER) | payer MEDICAID ==
[~2020-09-04] VITALS: Ht 170.2 cm; Wt 83.0 kg
[2020-09-04 23:53] LABS: HCG UR SG 1.036 (1.003-1.030)
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
[2020-09-05 00:25] VITALS: BP 112/61
== END 2020-09-05 00:27 | disposition home or self-care (01) ==
LOC: ED 23:53
DX: R51.9 Headache, unspecified (principal); E11.9 Type 2 diabetes mellitus without complications; I10 Essential (primary) hypertension; F17.210 Nicotine dependence, cigarettes, uncomplicated; Y04.8XXA Assault by other bodily force, initial encounter; Y93.89 Activity, other specified; Y92.009 Unspecified place in unspecified non-institutional (private) residence as the place of occurrence of the external cause; Y99.8 Other external cause status
CPT/HCPCS: 81025; 99283; 99406

== ENCOUNTER 2020-10-22 15:34 | Emergency (ER) | payer MEDICAID ==
[~2020-10-22] VITALS: Ht 170.2 cm; Wt 84.2 kg
[~2020-10-22 15:34] MED LIST changes: +LORA-59 PO; -LORA10TA62 PO
[2020-10-22] MEDS ORDERED: DEXAMETHASONE 4 MG/ML, 1ML PO ONE (16:30)
[2020-10-22 18:29] VITALS: BP 113/69
[2020-10-22] MEDS ORDERED: DEXAMETHASONE 4 MG TABLET ONE (18:51)
== END 2020-10-22 20:08 | disposition home or self-care (01) ==
LOC: ED 18:01
DX: B34.9 Viral infection, unspecified (principal); J02.9 Acute pharyngitis, unspecified; R05 Cough; R13.10 Dysphagia, unspecified; G43.909 Migraine, unspecified, not intractable, without status migrainosus; I10 Essential (primary) hypertension; J45.909 Unspecified asthma, uncomplicated; E11.9 Type 2 diabetes mellitus without complications
CPT/HCPCS: 71045; 99283; J1100

== ENCOUNTER 2020-10-26 16:32 | Emergency (ER) | payer MEDICAID ==
[~2020-10-26] VITALS: Ht 170.2 cm; Wt 83.7 kg
--- NOTE | 2020-10-26 18:41 | NUR ---
floral manager: pt from lobby to room 13
[2020-10-26 18:58] VITALS: BP 114/68
--- NOTE | 2020-10-26 18:59 | NUR ---
PT C/O TAMPON LEFT INSIDE VAGINA, CANNOT REMOVE HERSELF. PT CONNECTED TO MONITORING. CALL LIGHT IN REACH.
--- NOTE | 2020-10-26 19:09 | NUR ---
Waiting for dispo.
== END 2020-10-26 19:18 | disposition home or self-care (01) ==
LOC: ED 19:06
DX: T19.2XXA Foreign body in vulva and vagina, initial encounter (principal); R10.2 Pelvic and perineal pain; I10 Essential (primary) hypertension; E11.9 Type 2 diabetes mellitus without complications; F17.200 Nicotine dependence, unspecified, uncomplicated; J45.909 Unspecified asthma, uncomplicated; Z90.89 Acquired absence of other organs; X58.XXXA Exposure to other specified factors, initial encounter; Y93.89 Activity, other specified; Y92.89 Other specified places as the place of occurrence of the external cause; Y99.8 Other external cause status
CPT/HCPCS: 99284

== ENCOUNTER 2020-10-29 00:41 | Emergency (ER) | payer MEDICAID ==
[~2020-10-29] VITALS: Ht 170.2 cm; Wt 84.7 kg
--- NOTE | 2020-10-29 00:56 | NUR ---
cc of right wrist pain from a work injury 3 months ago with pain getting worse over last 3 days when she bends her wrist backwards. no swelling or ovbious deformity noted. pt boyfriend at bedside
[2020-10-29 02:23] VITALS: BP 108/70
== END 2020-10-29 02:25 | disposition home or self-care (01) ==
LOC: ED 00:56
DX: M25.531 Pain in right wrist (principal)
CPT/HCPCS: 29125; 99283

== ENCOUNTER 2020-11-01 02:23 | Emergency (ER) | payer MEDICAID ==
[~2020-11-01] VITALS: Ht 170.2 cm; Wt 84.4 kg
[2020-11-01] MEDS ORDERED: METOCLOPRAMIDE 10MG TABLET ONE (02:50)
[2020-11-01] MEDS ORDERED: KETOROLAC 60 MG/2 ML ONE (02:50)
[2020-11-01] MEDS ORDERED: SUMATRIPTAN 6MG/0.5ML SQ ONE ×2 (02:50→03:00)
[2020-11-01] MEDS ORDERED: KETOROLAC 30 MG/1 ML IM ONE (03:00)
[2020-11-01] MEDS ORDERED: METOCLOPRAMIDE 10MG TABLET PO ONE (03:00)
--- NOTE | 2020-11-01 03:02 | NUR ---
PT HERE FOR ALONSO. PT MEDICATED. VSS. CALL LIGHT IN REACH
[2020-11-01 03:54] VITALS: BP 115/72
--- NOTE | 2020-11-01 03:54 | NUR ---
Patient given discharge instructions and they have confirmed that they understand the instructions. Patient ambulatory with steady gait.
== END 2020-11-01 03:55 | disposition home or self-care (01) ==
LOC: ED 03:30
DX: G43.909 Migraine, unspecified, not intractable, without status migrainosus (principal); I10 Essential (primary) hypertension; F17.210 Nicotine dependence, cigarettes, uncomplicated; Z90.89 Acquired absence of other organs
CPT/HCPCS: 96372; 99284; 99406; J1885; J3030

== ENCOUNTER 2020-12-05 17:19 | Emergency (ER) | payer MEDICAID ==
[~2020-12-05] VITALS: Ht 170.2 cm; Wt 84.4 kg
[~2020-12-05 17:19] MED LIST changes: +SERT-331 PO; -SERT25TA3 PO
[2020-12-05] MEDS ORDERED: SERT50TA PO (17:53)
[2020-12-05] MEDS ORDERED: BUPR100T11 PO (17:53)
--- NOTE | 2020-12-05 17:54 | NUR ---
BREAK RN: PT AMBULATORY TO ROOM. VSS, NAD NOTED. CALL LIGHT W/I REACH.
--- NOTE | 2020-12-05 17:58 | NUR ---
REPORT RECEIVED FROM SETH ANGEL. PT RESTING ON GURNEY W/ CALL LIGHT IN REACH, SIDE RAILS UPX2 AND FAMILY AT BEDSIDE. RADHA STILES. AWAITING ED EVAL.
--- NOTE | 2020-12-05 18:54 | NUR ---
LAB IN ROOM.
--- NOTE | 2020-12-05 19:01 | NUR ---
REPORT GIVEN TO DANTE ANGEL. PT RESTING ON GURNEY W/ CALL LIGHT IN REACH AND SIDE RAILS UPX2. RESP EVEN AND UNLABORED, RADHA. AWAITING US.
[2020-12-05 19:07] LABS: BASOPHILS % (AUTO) 0 % (0-1); EOSINOPHILS % (AUTO) 1 % (1-7); LYMPHOCYTES % (AUTO) 27 % (22-44); MEAN CORPUSCULAR HEMOGLOBIN 30.3 pg (27.0-34.8); MEAN CORPUSCULAR HGB CONC 34.2 g/dL (32.4-35.8); MEAN PLATELET VOLUME 8.5 fL (7.4-10.4); MONOCYTES % (AUTO) 9 % (2-9); NEUTROPHILS % (AUTO) 64 % (42-75); PLATELET COUNT 259 x10^3/uL (130-400); RED BLOOD COUNT 4.41 x10^6/uL (3.82-5.3); RED CELL DISTRIBUTION WIDTH 12.9 % (9.6-15.2)
[2020-12-05 19:09] LABS: MD NO
[2020-12-05 19:14] LABS: ALANINE AMINOTRANSFERASE 50 U/L (12-78); ALBUMIN 3.8 g/dL (3.4-5.0); ANION GAP 6 mmol/L (5-15); CALCIUM 8.9 mg/dL (8.5-10.1); CHLORIDE 110 mmol/L (98-107); CREATININE 0.81 mg/dL (0.55-1.02)
[2020-12-05 19:19] LABS: ALKALINE PHOSPHATASE 82 U/L (45-117); BILIRUBIN,TOTAL 0.2 mg/dL (0.2-1.0); TOTAL PROTEIN 7.3 g/dL (6.4-8.2)
--- NOTE | 2020-12-05 19:21 | NUR ---
RECEIVED REPORT FROM JEANNE LOCKE. PT RESTING ON [place]. NADN. STILES.
[2020-12-05 19:32] LABS: MICROSCOPIC AUTO
--- NOTE | 2020-12-05 20:31 | NUR ---
PT RESTING ON GURNEY. NADN. STILES.
--- NOTE | 2020-12-05 20:57 | NUR ---
REPORT GIVEN TO JEANNE STAUFFER.
[2020-12-05] MEDS ORDERED: ONDANSETRON ODT 8 MG PO ONE (21:30)
[2020-12-05] MEDS ORDERED: ONDANSETRON ODT 8 MG ONE (21:45)
--- NOTE | 2020-12-05 22:04 | NUR ---
Patient given discharge instructions and they have confirmed that they understand the instructions. Patient ambulatory with steady gait.
[2020-12-05 22:06] VITALS: BP 112/71
== END 2020-12-05 22:08 | disposition home or self-care (01) ==
LOC: ED 19:40
DX: R10.11 Right upper quadrant pain (principal); R10.12 Left upper quadrant pain; R10.13 Epigastric pain; R11.2 Nausea with vomiting, unspecified; Z90.89 Acquired absence of other organs
CPT/HCPCS: 36415; 76700; 80053; 81001; 83690; 84703; 85025; 87086; 99285; Q0162

== ENCOUNTER 2020-12-13 18:59 | Emergency (ER) | payer MEDICAID ==
[~2020-12-13] VITALS: Ht 170.2 cm; Wt 84.5 kg
[~2020-12-13 18:59] MED LIST changes: +BUPR100T11 PO
--- NOTE | 2020-12-13 20:01 | NUR ---
PT C/O ABD PAIN X1 WEEK. + NAUSEA. VSS.
[2020-12-13] MEDS ORDERED: ONDANSETRON 2MG/ML, 2ML ONE (20:28)
[2020-12-13] MEDS ORDERED: MAALOX/HYOSCYAMINE/LIDOCAINE 45 ML BTL ONE (20:29)
[2020-12-13] MEDS ORDERED: FAMOTIDINE 20 MG/2 ML ONE (20:29)
[2020-12-13] MEDS ORDERED: ONDANSETRON ODT 4 MG PO ONE (20:30)
[2020-12-13] MEDS ORDERED: ONDANSETRON 2MG/ML, 2ML IVPush ONE (20:30)
[2020-12-13] MEDS ORDERED: FAMOTIDINE 20 MG/2 ML IVPush ONE (20:30)
[2020-12-13] MEDS ORDERED: FAMOTIDINE 20 MG TABLET PO ONE (20:30)
[2020-12-13] MEDS ORDERED: ONDANSETRON ODT 4 MG ONE (20:30)
[2020-12-13] MEDS ORDERED: FAMOTIDINE 20 MG TABLET ONE (20:30)
[2020-12-13] MEDS ORDERED: MAALOX/HYOSCYAMINE/LIDOCAINE 45 ML BTL PO ONE (20:30)
[2020-12-13 20:54] LABS: BASOPHILS % (AUTO) 0 % (0-1); EOSINOPHILS % (AUTO) 1 % (1-7); LYMPHOCYTES % (AUTO) 25 % (22-44); MEAN CORPUSCULAR HEMOGLOBIN 30.5 pg (27.0-34.8); MEAN CORPUSCULAR HGB CONC 34.6 g/dL (32.4-35.8); MEAN PLATELET VOLUME 8.6 fL (7.4-10.4); MONOCYTES % (AUTO) 9 % (2-9); NEUTROPHILS % (AUTO) 66 % (42-75); PLATELET COUNT 269 x10^3/uL (130-400); RED BLOOD COUNT 4.56 x10^6/uL (3.82-5.3); RED CELL DISTRIBUTION WIDTH 13.1 % (9.6-15.2)
[2020-12-13 20:58] LABS: MD NO
--- NOTE | 2020-12-13 21:05 | NUR ---
PT REPORTS SHE FEELS BETTER, DENIES ABD PAIN AT THIS TIME.
[2020-12-13 21:08] LABS: ALANINE AMINOTRANSFERASE 39 U/L (12-78); ALBUMIN 3.9 g/dL (3.4-5.0); ANION GAP 8 mmol/L (5-15); CALCIUM 8.9 mg/dL (8.5-10.1); CHLORIDE 108 mmol/L (98-107); CREATININE 0.95 mg/dL (0.55-1.02)
[2020-12-13 21:13] LABS: ALKALINE PHOSPHATASE 88 U/L (45-117); BILIRUBIN,TOTAL 0.3 mg/dL (0.2-1.0); TOTAL PROTEIN 7.9 g/dL (6.4-8.2)
[2020-12-13 21:41] VITALS: BP 113/65
== END 2020-12-13 22:00 | disposition home or self-care (01) ==
LOC: ED 21:30
DX: K21.00 Gastro-esophageal reflux disease with esophagitis, without bleeding (principal); F17.210 Nicotine dependence, cigarettes, uncomplicated
CPT/HCPCS: 36415; 80053; 83690; 84703; 85025; 99284; Q0162

== ENCOUNTER 2020-12-30 01:12 | Emergency (ER) | payer MEDICAID ==
[~2020-12-30] VITALS: Ht 170.2 cm; Wt 85.4 kg
[2020-12-30 01:21] VITALS: BP 107/70
[2020-12-30] MEDS ORDERED: IBUPROFEN 600 MG TABLET ONE (03:16)
[2020-12-30] MEDS ORDERED: IBUPROFEN 600 MG TABLET PO ONE (03:30)
== END 2020-12-30 03:55 | disposition home or self-care (01) ==
LOC: ED 01:42
DX: G89.11 Acute pain due to trauma (principal); M25.562 Pain in left knee; F10.10 Alcohol abuse, uncomplicated; F12.10 Cannabis abuse, uncomplicated; F17.290 Nicotine dependence, other tobacco product, uncomplicated; I10 Essential (primary) hypertension; E11.9 Type 2 diabetes mellitus without complications; K21.9 Gastro-esophageal reflux disease without esophagitis; G43.909 Migraine, unspecified, not intractable, without status migrainosus; J45.909 Unspecified asthma, uncomplicated; Z72.9 Problem related to lifestyle, unspecified; Z90.49 Acquired absence of other specified parts of digestive tract; W01.0XXA Fall on same level from slipping, tripping and stumbling without subsequent striking against object, initial encounter; Y93.89 Activity, other specified; Y92.488 Other paved roadways as the place of occurrence of the external cause; Y99.8 Other external cause status; Y90.9 Presence of alcohol in blood, level not specified
CPT/HCPCS: 29530; 99283

== ENCOUNTER 2021-01-08 20:00 | Emergency (ER) | payer SELFPAY ==
[~2021-01-08] VITALS: Ht 170.2 cm; Wt 86.2 kg
--- NOTE | 2021-01-08 20:45 | NUR ---
pt in bed with no signs or symptoms of acute dsitress noted respirations even and unlabored lab at bedside to draw. pt on fender mechanic with call light within reach.
[2021-01-08 21:01] LABS: BASOPHILS % (AUTO) 0 % (0-1); EOSINOPHILS % (AUTO) 0 % (1-7); LYMPHOCYTES % (AUTO) 22 % (22-44); MEAN CORPUSCULAR HEMOGLOBIN 30.5 pg (27.0-34.8); MEAN CORPUSCULAR HGB CONC 34.5 g/dL (32.4-35.8); MEAN PLATELET VOLUME 8.5 fL (7.4-10.4); MONOCYTES % (AUTO) 6 % (2-9); NEUTROPHILS % (AUTO) 72 % (42-75); PLATELET COUNT 305 x10^3/uL (130-400); RED BLOOD COUNT 4.46 x10^6/uL (3.82-5.3); RED CELL DISTRIBUTION WIDTH 12.9 % (9.6-15.2)
[2021-01-08 21:02] LABS: MD NO
[2021-01-08 21:15] LABS: ALBUMIN 3.9 g/dL (3.4-5.0); ANION GAP 8 mmol/L (5-15); CALCIUM 8.7 mg/dL (8.5-10.1); CHLORIDE 110 mmol/L (98-107)
[2021-01-08 21:20] LABS: CREATININE 0.84 mg/dL (0.55-1.02)
--- NOTE | 2021-01-08 21:47 | NUR ---
pt out to us with tech as transporter, taken via gurney with no signs or symptoms of acute distress noted respirations even and unlabored
[2021-01-08 22:00] LABS: MICROSCOPIC INDICATED
[2021-01-08 23:05] VITALS: BP 110/70
== END 2021-01-08 23:06 | disposition home or self-care (01) ==
LOC: ED 20:57
DX: O99.411 Diseases of the circulatory system complicating pregnancy, first trimester (principal); R00.2 Palpitations; R07.89 Other chest pain; R00.0 Tachycardia, unspecified; F17.200 Nicotine dependence, unspecified, uncomplicated; I10 Essential (primary) hypertension; E11.9 Type 2 diabetes mellitus without complications; J45.909 Unspecified asthma, uncomplicated; Z3A.01 Less than 8 weeks gestation of pregnancy; Z90.89 Acquired absence of other organs
CPT/HCPCS: 36415; 76801; 80048; 81001; 82040; 84702; 85025; 87086; 93005; 99285

== ENCOUNTER 2021-01-22 09:05 | Emergency (ER) | payer MEDICAID ==
[~2021-01-22] VITALS: Ht 170.2 cm; Wt 86.0 kg
--- NOTE | 2021-01-22 09:50 | NUR ---
ISABELL RN: PT IN ULTRASOUND
--- NOTE | 2021-01-22 10:00 | NUR ---
Pt back from [facility]. Sent from ob due to cramping. Pt reports cramping since last night, denies discharge and bleeding.
[2021-01-22 10:19] LABS: BASOPHILS % (AUTO) 1 % (0-1); EOSINOPHILS % (AUTO) 1 % (1-7); LYMPHOCYTES % (AUTO) 21 % (22-44); MEAN PLATELET VOLUME 8.7 fL (7.4-10.4); MONOCYTES % (AUTO) 9 % (2-9); NEUTROPHILS % (AUTO) 68 % (42-75); PLATELET COUNT 256 x10^3/uL (130-400); RED BLOOD COUNT 4.45 x10^6/uL (3.82-5.3); RED CELL DISTRIBUTION WIDTH 13.8 % (9.6-15.2)
[2021-01-22 10:25] LABS: MD NO
--- NOTE | 2021-01-22 10:31 | NUR ---
PT RESTING IN BED, CALL LIGHT IN REACH. AWARE OF NEEDED URINE SAMPLE.
[2021-01-22 11:10] VITALS: BP 108/69
[2021-01-22 11:20] LABS: MICROSCOPIC INDICATED
--- NOTE | 2021-01-22 11:50 | NUR ---
DC INSTRUCTIONS REVIEWED
== END 2021-01-22 11:51 | disposition home or self-care (01) ==
LOC: ED 10:08
DX: O26.891 Other specified pregnancy related conditions, first trimester (principal); R10.30 Lower abdominal pain, unspecified; Z3A.01 Less than 8 weeks gestation of pregnancy
CPT/HCPCS: 36415; 76801; 81001; 84702; 85025; 86901; 87086; 99284

== ENCOUNTER 2021-02-04 21:00 | Emergency (ER) | payer MEDICAID ==
[~2021-02-04] VITALS: Ht 170.2 cm; Wt 86.1 kg
[2021-02-04 21:02] VITALS: BP 126/62
--- NOTE | 2021-02-04 21:29 | NUR ---
THIS RN AT BEDSIDE DURING PELVIC EXAM.
[2021-02-04 21:34] LABS: CLUE CELLS NONE SEEN (NONE SEEN)
--- NOTE | 2021-02-04 21:34 | NUR ---
PT AMBULATED TO RESTROOM WITH STEADY GAIT TO PROVIDE URINE SAMPLE. UA COLLECTED AND SENT TO LAB
[2021-02-04 21:39] LABS: WET PREP WBCS MANY (FEW)
[2021-02-04 21:45] LABS: MICROSCOPIC AUTO
--- NOTE | 2021-02-04 22:42 | NUR ---
Patient/Caregiver given discharge instructions and they have confirmed that they understand the instructions. Patient ambulatory with steady gait.
== END 2021-02-04 22:43 | disposition home or self-care (01) ==
LOC: ED 21:11
DX: O26.891 Other specified pregnancy related conditions, first trimester (principal); N89.8 Other specified noninflammatory disorders of vagina; Z3A.08 8 weeks gestation of pregnancy; Z88.5 Allergy status to narcotic agent; Z88.2 Allergy status to sulfonamides
CPT/HCPCS: 81001; 87086; 87210; 87491; 87591; 87808; 99283

== ENCOUNTER 2021-02-17 16:53 | Emergency (ER) | payer MEDICAID ==
[~2021-02-17] VITALS: Ht 170.2 cm; Wt 84.8 kg
[2021-02-17 17:00] VITALS: BP 106/51
[2021-02-17] MEDS ORDERED: ACETAMINOPHEN 500 MG TABLET PO ONE (17:30)
[2021-02-17] MEDS ORDERED: ACETAMINOPHEN 500 MG TABLET ONE (17:38)
--- NOTE | 2021-02-17 17:43 | NUR ---
PT AMBULATED TO RESTROOM WITH STEADY GAIT TO PROVIDE URINE SAMPLE. UA COLLECTED AND SENT TO LAB. TRIMMER OPERATOR PER DEC. PT AT US.
[2021-02-17 17:49] LABS: MICROSCOPIC INDICATED
[2021-02-17 18:43] LABS: ALBUMIN 3.5 g/dL (3.4-5.0); ANION GAP 8 mmol/L (5-15); CALCIUM 9.4 mg/dL (8.5-10.1); CHLORIDE 109 mmol/L (98-107); CREATININE 0.64 mg/dL (0.55-1.02)
[2021-02-17 18:52] LABS: BASOPHILS % (AUTO) 0 % (0-1); EOSINOPHILS % (AUTO) 0 % (1-7); LYMPHOCYTES % (AUTO) 19 % (22-44); MEAN CORPUSCULAR HEMOGLOBIN 29.8 pg (27.0-34.8); MEAN CORPUSCULAR HGB CONC 32.5 g/dL (32.4-35.8); MONOCYTES % (AUTO) 7 % (2-9); NEUTROPHILS % (AUTO) 74 % (42-75); PLATELET COUNT 225 x10^3/uL (130-400); RED BLOOD COUNT 4.15 x10^6/uL (3.82-5.3); RED CELL DISTRIBUTION WIDTH 13.8 % (9.6-15.2)
[2021-02-17 18:53] LABS: MD NO
== END 2021-02-17 19:53 | disposition home or self-care (01) ==
LOC: ED 17:28
DX: O26.891 Other specified pregnancy related conditions, first trimester (principal); R10.2 Pelvic and perineal pain; R10.31 Right lower quadrant pain; R10.32 Left lower quadrant pain; G43.909 Migraine, unspecified, not intractable, without status migrainosus; Z3A.10 10 weeks gestation of pregnancy
CPT/HCPCS: 36415; 76801; 80048; 81001; 82040; 84702; 85025; 87086; 99284

== ENCOUNTER 2021-02-23 21:47 | Emergency (ER) | payer MEDICAID ==
[~2021-02-23] VITALS: Ht 170.2 cm; Wt 85.0 kg
--- NOTE | 2021-02-23 23:50 | NUR ---
pt moved to room 23. assuemd care of pt pt reports that she is about 10 weeks and that she is having vaginal itching and discomfort along with painful urination for 2-3 days. pt denies new recent sexual partner, denies using STD prevention pt denies vaginal bleeding, no cramping no back pain. 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 pt on pelvic gurney and pevix exam setup complete in room. warm blankets given per request. no family at bedside
[2021-02-23 23:54] LABS: MICROSCOPIC INDICATED
--- NOTE | 2021-02-24 00:27 | NUR ---
Dr Villagran has been to bedside for pelvic exam
[2021-02-24] MEDS ORDERED: FLUCONAZOLE 200 MG TABLET PO ONE (00:30)
[2021-02-24] MEDS ORDERED: FLUCONAZOLE 100 MG TABLET ONE (00:30)
[2021-02-24] MEDS ORDERED: CLOTRIMAZOLE VAGINAL CRM 1%, 45GM VG SCH (00:30)
[2021-02-24 00:37] LABS: CLUE CELLS NONE SEEN (NONE SEEN); WET PREP WBCS FEW (FEW)
--- NOTE | 2021-02-24 01:20 | NUR ---
report to Shantel ANGEL for lunch
[2021-02-24 01:30] VITALS: BP 129/82
--- NOTE | 2021-02-24 02:01 | NUR ---
this pt was D/C by another RN
== END 2021-02-24 01:32 | disposition home or self-care (01) ==
LOC: ED 23:43
DX: O26.891 Other specified pregnancy related conditions, first trimester (principal); B37.3 Candidiasis of vulva and vagina; O16.1 Unspecified maternal hypertension, first trimester; O24.419 Gestational diabetes mellitus in pregnancy, unspecified control; O99.511 Diseases of the respiratory system complicating pregnancy, first trimester; J45.909 Unspecified asthma, uncomplicated; K21.9 Gastro-esophageal reflux disease without esophagitis; Z3A.10 10 weeks gestation of pregnancy
CPT/HCPCS: 36415; 81001; 84702; 87086; 87210; 87491; 87591; 87808; 99284

== ENCOUNTER 2021-03-02 20:33 | Emergency (ER) | payer MEDICAID ==
[~2021-03-02] VITALS: Ht 170.2 cm; Wt 84.4 kg
[2021-03-02 20:34] VITALS: BP 110/55
[2021-03-02 22:51] LABS: BASOPHILS % (AUTO) 0 % (0-1); EOSINOPHILS % (AUTO) 0 % (1-7); LYMPHOCYTES % (AUTO) 22 % (22-44); MEAN CORPUSCULAR HEMOGLOBIN 31.3 pg (27.0-34.8); MEAN CORPUSCULAR HGB CONC 34.5 g/dL (32.4-35.8); MEAN PLATELET VOLUME 9.1 fL (7.4-10.4); MONOCYTES % (AUTO) 8 % (2-9); NEUTROPHILS % (AUTO) 69 % (42-75); PLATELET COUNT 256 x10^3/uL (130-400); RED CELL DISTRIBUTION WIDTH 13.5 % (9.6-15.2)
[2021-03-02 22:56] LABS: MD NO
[2021-03-02 23:01] LABS: ALBUMIN 3.5 g/dL (3.4-5.0); ANION GAP 7 mmol/L (5-15); CHLORIDE 107 mmol/L (98-107); CREATININE 0.63 mg/dL (0.55-1.02)
[2021-03-02 23:44] LABS: MICROSCOPIC INDICATED
--- NOTE | 2021-03-03 01:05 | NUR ---
Patient/Caregiver given discharge instructions and they have confirmed that they understand the instructions. Patient ambulatory with steady gait.
== END 2021-03-03 01:06 | disposition home or self-care (01) ==
LOC: ED 20:48
DX: O26.891 Other specified pregnancy related conditions, first trimester (principal); R82.71 Bacteriuria; R10.84 Generalized abdominal pain; O16.1 Unspecified maternal hypertension, first trimester; O24.419 Gestational diabetes mellitus in pregnancy, unspecified control; O99.511 Diseases of the respiratory system complicating pregnancy, first trimester; J45.909 Unspecified asthma, uncomplicated; Z87.891 Personal history of nicotine dependence; Z3A.12 12 weeks gestation of pregnancy
CPT/HCPCS: 36415; 80048; 81001; 82040; 84702; 85025; 87086; 99283

== ENCOUNTER 2021-03-07 23:04 | Emergency (ER) | payer MEDICAID ==
[~2021-03-07] VITALS: Ht 170.2 cm; Wt 84.4 kg
[2021-03-07 23:07] VITALS: BP 120/69
[2021-03-07] MEDS ORDERED: ACETAMINOPHEN 500 MG TABLET PO ONE (23:30)
--- NOTE | 2021-03-08 00:56 | NUR ---
pt laying in bed, pt tearful from pain, pt experiencing pain on her left glute, pt fell off a skateboard yesterday onto her rear end, pts significant other at bedside, pts rear end has no bruising and was not warm to touch, this RN requested presence of female RN for visual inspection of pts complaint
[2021-03-08] MEDS ORDERED: ACETAMINOPHEN 500 MG TABLET ONE (01:07)
[2021-03-08] MEDS ORDERED: ONDANSETRON ODT 4 MG ONE (01:12)
--- NOTE | 2021-03-08 01:18 | NUR ---
Pt asking for zofran for nausea. Verbal order dr fay for zofran 4mg odt.
[2021-03-08] MEDS ORDERED: ONDANSETRON ODT 4 MG PO ONE (01:30)
== END 2021-03-08 01:24 | disposition home or self-care (01) ==
LOC: ED 23:34
DX: O9A.211 Injury, poisoning and certain other consequences of external causes complicating pregnancy, first trimester (principal); S30.0XXA Contusion of lower back and pelvis, initial encounter; O26.891 Other specified pregnancy related conditions, first trimester; M54.5 Low back pain; I10 Essential (primary) hypertension; E11.9 Type 2 diabetes mellitus without complications; G43.909 Migraine, unspecified, not intractable, without status migrainosus; K21.9 Gastro-esophageal reflux disease without esophagitis; Z90.89 Acquired absence of other organs; F17.200 Nicotine dependence, unspecified, uncomplicated; W01.0XXA Fall on same level from slipping, tripping and stumbling without subsequent striking against object, initial encounter; Z3A.12 12 weeks gestation of pregnancy; Y93.89 Activity, other specified; Y92.89 Other specified places as the place of occurrence of the external cause; Y99.8 Other external cause status
CPT/HCPCS: 76801; 99284; Q0162

== ENCOUNTER 2021-03-28 02:26 | Emergency (ER) | payer MEDICAID ==
[~2021-03-28] VITALS: Ht 170.2 cm; Wt 82.0 kg
[2021-03-28 02:28] VITALS: BP 107/65
--- NOTE | 2021-03-28 03:23 | NUR ---
Patient/Caregiver given discharge instructions and they have confirmed that they understand the instructions. Patient ambulatory with steady gait. NAD, all questions answered appropriately, denies additional needs at this time. No personal belongings left in room after discharge.
== END 2021-03-28 03:24 | disposition home or self-care (01) ==
LOC: ED 03:21
DX: O26.892 Other specified pregnancy related conditions, second trimester (principal); R00.2 Palpitations; O99.332 Smoking (tobacco) complicating pregnancy, second trimester; F17.210 Nicotine dependence, cigarettes, uncomplicated; O16.2 Unspecified maternal hypertension, second trimester; O99.512 Diseases of the respiratory system complicating pregnancy, second trimester; J45.909 Unspecified asthma, uncomplicated; O24.419 Gestational diabetes mellitus in pregnancy, unspecified control; K21.9 Gastro-esophageal reflux disease without esophagitis; G43.909 Migraine, unspecified, not intractable, without status migrainosus; Z3A.15 15 weeks gestation of pregnancy
CPT/HCPCS: 93005; 99406

== ENCOUNTER 2021-04-13 18:39 | Emergency (ER) | payer MEDICAID ==
[2021-04-13 18:51] VITALS: BP 123/81
--- NOTE | 2021-04-13 22:38 | NUR ---
PT CALLED FOR ROOM. NA X 1
--- NOTE | 2021-04-13 22:59 | NUR ---
PT NOT IN LOBBY. NA X 2
--- NOTE | 2021-04-13 23:14 | NUR ---
NA X 3
== END 2021-04-13 23:16 | disposition left against medical advice (07) ==
LOC: ED 21:16
DX: O46.92 Antepartum hemorrhage, unspecified, second trimester (principal); N93.9 Abnormal uterine and vaginal bleeding, unspecified; Z3A.17 17 weeks gestation of pregnancy
CPT/HCPCS: 99281

== ENCOUNTER 2021-04-27 22:41 | Emergency (ER) | payer SELFPAY ==
[~2021-04-27] VITALS: Ht 170.2 cm; Wt 79.4 kg
--- NOTE | 2021-04-27 22:46 | NUR ---
FRANK RN: PT IS IN THE BATHROOM
[2021-04-27 22:49] VITALS: BP 113/70
--- NOTE | 2021-04-27 23:12 | NUR ---
FEELS DIZZY AND WEAK AFTER GETTING 1ST COVID VACCINE TODAY AROUND 1630.
== END 2021-04-27 23:51 | disposition home or self-care (01) ==
LOC: ED 23:00
DX: R42 Dizziness and giddiness (principal); J02.9 Acute pharyngitis, unspecified; R94.31 Abnormal electrocardiogram [ECG] [EKG]; E11.9 Type 2 diabetes mellitus without complications; J45.909 Unspecified asthma, uncomplicated; Z90.89 Acquired absence of other organs; F17.200 Nicotine dependence, unspecified, uncomplicated
CPT/HCPCS: 93005; 99283

== ENCOUNTER 2021-05-07 17:50 | Emergency (ER) | payer MEDICAID ==
[~2021-05-07] VITALS: Ht 170.2 cm; Wt 78.6 kg
[2021-05-07 18:11] VITALS: BP 113/84
[2021-05-07 18:51] LABS: BASOPHILS % (AUTO) 0 % (0-1); EOSINOPHILS % (AUTO) 1 % (1-7); LYMPHOCYTES % (AUTO) 25 % (22-44); MEAN CORPUSCULAR HEMOGLOBIN 29.9 pg (27.0-34.8); MEAN CORPUSCULAR HGB CONC 33.3 g/dL (32.4-35.8); MEAN PLATELET VOLUME 8.9 fL (7.4-10.4); MONOCYTES % (AUTO) 8 % (2-9); NEUTROPHILS % (AUTO) 66 % (42-75); PLATELET COUNT 294 x10^3/uL (130-400); RED BLOOD COUNT 3.55 x10^6/uL (3.82-5.3); RED CELL DISTRIBUTION WIDTH 13.9 % (9.6-15.2)
[2021-05-07 19:03] LABS: ALBUMIN 3.7 g/dL (3.4-5.0); ANION GAP 7 mmol/L (5-15); CALCIUM 8.6 mg/dL (8.5-10.1); CHLORIDE 111 mmol/L (98-107)
[2021-05-07 19:10] LABS: ALANINE AMINOTRANSFERASE 18 U/L (12-78); ALKALINE PHOSPHATASE 77 U/L (45-117); BILIRUBIN,TOTAL 0.3 mg/dL (0.2-1.0); CREATININE 0.81 mg/dL (0.55-1.02); TOTAL PROTEIN 7.6 g/dL (6.4-8.2)
--- NOTE | 2021-05-07 20:50 | NUR ---
supervisor case loading note: Pt to room from lobby.
[2021-05-07] MEDS ORDERED: MAALOX/HYOSCYAMINE/LIDOCAINE 45 ML BTL PO ONE (21:00)
[2021-05-07] MEDS ORDERED: MAALOX/HYOSCYAMINE/LIDOCAINE 45 ML BTL ONE (21:26)
== END 2021-05-07 21:31 | disposition home or self-care (01) ==
LOC: ED 21:25
DX: K29.00 Acute gastritis without bleeding (principal); R11.0 Nausea; I10 Essential (primary) hypertension; E11.9 Type 2 diabetes mellitus without complications; K21.9 Gastro-esophageal reflux disease without esophagitis; F17.210 Nicotine dependence, cigarettes, uncomplicated
CPT/HCPCS: 36415; 80053; 83690; 84703; 85025; 99406

== ENCOUNTER 2021-06-07 20:45 | Emergency (ER) | payer MEDICAID ==
[~2021-06-07] VITALS: Ht 170.2 cm; Wt 76.8 kg
[2021-06-07 20:47] VITALS: BP 107/49
== END 2021-06-07 22:17 | disposition home or self-care (01) ==
LOC: ED 21:59
DX: R07.89 Other chest pain (principal); R00.2 Palpitations; R06.02 Shortness of breath; I10 Essential (primary) hypertension; E11.9 Type 2 diabetes mellitus without complications; J45.909 Unspecified asthma, uncomplicated; F17.200 Nicotine dependence, unspecified, uncomplicated; Z90.89 Acquired absence of other organs
CPT/HCPCS: 93005; 99283

== ENCOUNTER 2021-06-09 17:02 | Emergency (ER) | payer MEDICAID ==
[~2021-06-09] VITALS: Ht 170.2 cm; Wt 77.0 kg
[2021-06-09 17:48] LABS: BASOPHILS % (AUTO) 1 % (0-1); EOSINOPHILS % (AUTO) 1 % (1-7); LYMPHOCYTES % (AUTO) 30 % (22-44); MEAN CORPUSCULAR HEMOGLOBIN 27.4 pg (27.0-34.8); MEAN CORPUSCULAR HGB CONC 32.7 g/dL (32.4-35.8); MEAN PLATELET VOLUME 9.2 fL (7.4-10.4); MONOCYTES % (AUTO) 9 % (2-9); NEUTROPHILS % (AUTO) 59 % (42-75); PLATELET COUNT 272 x10^3/uL (130-400); RED BLOOD COUNT 4.14 x10^6/uL (3.82-5.3); RED CELL DISTRIBUTION WIDTH 14.6 % (9.6-15.2)
--- NOTE | 2021-06-09 23:21 | NUR ---
pt to room from lobby
[2021-06-09 23:35] VITALS: BP 102/41
--- NOTE | 2021-06-09 23:37 | NUR ---
CC OF CP IN MIDDLE CHEST X 4 DAYS AND SOB. PT STATES SHE USED HER INHALER 3 TIMES TODAY AND CALLED HER SURGICAL SCRUB TECHNICIAN AND WAS ADVISED TO COME HERE. HAS CARDS APPOITMENT FRIDAY. NO N/V.
== END 2021-06-10 00:14 | disposition home or self-care (01) ==
LOC: ED 17:30
DX: R07.89 Other chest pain (principal); R05 Cough; Z20.822 Contact with and (suspected) exposure to COVID-19; F17.210 Nicotine dependence, cigarettes, uncomplicated; J45.909 Unspecified asthma, uncomplicated
CPT/HCPCS: 36415; 71045; 83880; 84703; 85025; 93005; 99285; 99406; U0003; U0005

== ENCOUNTER 2021-07-03 13:37 | Emergency (ER) | payer MEDICAID ==
[~2021-07-03] VITALS: Ht 170.2 cm; Wt 75.0 kg
[2021-07-03 13:44] VITALS: BP 118/75
== END 2021-07-03 14:25 | disposition left against medical advice (07) ==
LOC: ED 14:00
DX: T78.40XA Allergy, unspecified, initial encounter (principal); R06.02 Shortness of breath; Z53.21 Procedure and treatment not carried out due to patient leaving prior to being seen by health care provider; X58.XXXA Exposure to other specified factors, initial encounter

== ENCOUNTER 2021-07-12 18:53 | Emergency (ER) | payer MEDICAID ==
[~2021-07-12] VITALS: Ht 170.2 cm; Wt 74.6 kg
[2021-07-12 23:23] VITALS: BP 107/65
--- NOTE | 2021-07-12 23:30 | NUR ---
Patient given discharge instructions and they have confirmed that they understand the instructions. Patient ambulatory with steady gait. NAD, all questions answered appropriately, denies additional needs at this time. No personal belongings left in room after discharge.
== END 2021-07-12 23:32 | disposition home or self-care (01) ==
LOC: ED 19:00
DX: S76.012A Strain of muscle, fascia and tendon of left hip, initial encounter (principal); M25.552 Pain in left hip; G89.29 Other chronic pain; F17.210 Nicotine dependence, cigarettes, uncomplicated; I10 Essential (primary) hypertension; X58.XXXA Exposure to other specified factors, initial encounter; Y93.89 Activity, other specified; Y92.89 Other specified places as the place of occurrence of the external cause; Y99.8 Other external cause status
CPT/HCPCS: 99281; 99406

== ENCOUNTER 2021-07-22 04:08 | Emergency (ER) | payer MEDICAID ==
[~2021-07-22] VITALS: Ht 170.2 cm; Wt 75.0 kg
[2021-07-22 04:14] VITALS: BP 110/71
== END 2021-07-22 04:46 | disposition home or self-care (01) ==
LOC: ED 04:30
DX: G40.319 Generalized idiopathic epilepsy and epileptic syndromes, intractable, without status epilepticus (principal); J00 Acute nasopharyngitis [common cold]; Z20.822 Contact with and (suspected) exposure to COVID-19; I10 Essential (primary) hypertension; K21.9 Gastro-esophageal reflux disease without esophagitis; J45.909 Unspecified asthma, uncomplicated; F17.200 Nicotine dependence, unspecified, uncomplicated
CPT/HCPCS: 99283; U0003; U0005